=== PATIENT | female | born 1935 | race Caucasian/White ===

== ENCOUNTER 2019-05-15 05:38 | Observation (INO) | payer MEDICARE, OTHER, BC ==
[2019-05-15 06:09] LABS: ABS Lymphocytes 1.6 10^3/ul (1.0-4.8); ABS Monocytes 0.4 10^3/ul (0-0.8); ABS Neutrophils 6.2 10^3/ul (1.5-7.7); Eosinophil % 0.3 %; Hematocrit 48 % (35-47); Hemoglobin 16.6 g/dL (12.0-16.0); Lymphocyte % 19.7 %; Mean Corpuscular HGB Conc 35 g/dL (31-36); Mean Corpuscular Hemoglobin 34 pg (27-31); Mean Corpuscular Volume 97 fL (80-97); Mean Platelet Volume 6.8 fL (7.4-10.4); Nucleated Red Blood Cells % 0.1; Platelet Count 229 10^3/uL (150-450); Red Blood Count 4.95 10^6 /uL (3.70-4.87); Red Cell Distribution Width 13 % (10-15); White Blood Count 8.2 10^3/uL (3.5-10.8)
[2019-05-15 06:21] LABS: INR 0.97 (0.82-1.09)
[2019-05-15] MEDS: Meclizine TAB* 12.5 MG PO ONE ×2 (06:25→06:27)
[2019-05-15 06:28] LABS: Albumin 4.2 g/dL (3.2-5.2); Albumin/Globulin Ratio 1.6 (1-3); BUN/Creatinine Ratio 32.1 (8-20); Calcium 10.3 mg/dL (8.6-10.3); EGFR African American 78.3 (>60); EGFR Non-African American 64.8 (>60); Globulin 2.7 g/dL (2-4); Potassium 4.2 mmol/L (3.5-5.0); Total Protein 6.9 g/dL (6.4-8.9)
[2019-05-15] MEDS ORDERED: NS 0.9% 1000 ML** 1,000 ML IV ONE (06:43)
[2019-05-15 07:13] LABS: Urine Appearance Clear; Urine Bacteria Absent (Absent); Urine Bilirubin Negative (Negative); Urine Blood Negative (Negative); Urine Color Yellow; Urine Glucose Negative (Negative); Urine Ketones Trace (Negative); Urine Nitrite Negative (Negative); Urine Protein Negative (Negative); Urine Red Blood Cell 1+(3-5/hpf) (Absent); Urine Squamous Epithelial Cell Present (Absent); Urine Urobilinogen Negative (Negative); Urine White Blood Cell 2+(11-20/hpf) (Absent)
--- NOTE | 2019-05-15 08:07 | ED ---
Neurological HPI - HPI Summary HPI Summary: This patient is a 83-year-old female presenting to the ED with acute onset dizziness at 1:30 AM. She states she awoke to go to the bathroom and felt like the room was spinning. She was able to make it to the restroom without falls by holding onto the esteves and steadying herself. History of vertigo although 40 years ago and states she does not recall the feeling. She states last week on Wednesday she had to leave gnosticist service she was very nauseous, denied any vomiting or dizziness at that time. On Wednesday at the same week, she states while she was cutting up a banana she was unable to get her hand to move the way she wanted it to. She denies any weakness in the hand and was holding a knife and didnt drop the knife, however was unable to turn her hand. She states after approximately 2-3 minutes, this resolved. At that time she denied having any headache or dizziness. This morning at 1:30 she awoke with dizziness with nausea without vomiting. She was able to call the ambulance and continues to have dizziness on arrival. She has been denying any headaches. She denies any visual changes, however she was diagnosed with a degeneration causing auras and floaters. No photophobia. No dysphagia, weakness or numbness. She states these symptoms have not changed or worsened. She does endorse having physical therapy for approximately 3-4 weeks for right sided neck , shoulder and pain to the occiput area. At this time, she is denying any weakness, incoordination, neuro symptoms or confusion. Denies CP/SOB. - History of Current Complaint Chief Complaint: EDDizziness Stated Complaint: DIZZY PER EMS Time Seen by Provider: 05/15/19 05:46 Hx Obtained From: Patient Onset/Duration: Sudden Onset - 1:30am Timing: Constant Onset Severity: Severe Current Severity: Severe Pain Intensity: 0 Character: Room Spinning Aggravating: Position Change/Supine to Erect, Change in Head Position Alleviating: Rest, Lying Down, Closing Eyes Associated Signs and Symptoms: Positive: Unsteady Gait, Dizziness, Emotional Distress. Negative: Tinnitus, Visual Changes, Headache, Memory Loss, Confusion , Agitation, Weakness, Loss of Consciousness, Decreased Level of Consciousness, AMS, Impaired Speech, Numbness, Lightheadness, Chest Pain, Shortness of Breath - Allergy/Home Medications Allergies/Adverse Reactions: Allergies Allergy/AdvReac Type Severity Reaction Status Date / Time morphine Allergy Severe Anaphylatic Verified 05/15/19 05:48 Shock sulfamethoxazole Allergy Severe Nausea And Verified 05/15/19 05:48 [From Bactrim] Vomiting trimethoprim [From Bactrim] Allergy Severe Nausea And Verified 05/15/19 05:48 Vomiting codeine Allergy Intermediate Nausea Verified 05/15/19 05:48 metronidazole [From Flagyl] AdvReac See Comment Verified 05/15/19 05:48 Home Medications: Home Medications ALPRAZolam [Xanax] 0.25 mg PO SEE INSTRUCTIONS PRN 05/15/19 [History Confirmed 05/15/19] Amlodipine Besylate [Amlodipine 2.5 mg tab] 2.5 mg PO BEDTIME 05/15/19 [History Confirmed 05/15/19] Calcium Citrate/Vitamin D3 [Citracal + D3 Maximum] 1 tab PO BEDTIME 05/15/19 [ History Confirmed 05/15/19] Cholecalciferol (Vitamin D3) [Vitamin D3] 1,000 unit PO DAILY 05/15/19 [History Confirmed 05/15/19] Cyanocobalamin (Vitamin B-12) [B-12 Dots] 500 mcg PO DAILY 05/15/19 [History Confirmed 05/15/19] L.acidoph,Paracasei, B.lactis [Probiotic] 1 each PO DAILY 05/15/19 [History Confirmed 05/15/19] Loperamide CAP* [Imodium CAP*] 0.5 - 1 cap PO SEE INSTRUCTIONS PRN 05/15/19 [ History Confirmed 05/15/19] Metoprolol Tartrate TAB* [Lopressor TAB*] 25 mg PO BEDTIME 05/15/19 [History Confirmed 05/15/19] Metoprolol Tartrate TAB* [Lopressor TAB*] 50 mg PO DAILY 05/15/19 [History Confirmed 05/15/19] Multivitamin [Multiple Vitamins] 1 tab PO BEDTIME 05/15/19 [History Confirmed ] Naproxen Sodium [Aleve] 220 mg PO BID 05/15/19 [History Confirmed 05/15/19] tiZANidine TAB* [Zanaflex TAB*] 1 - 2 tab PO BID 05/15/19 [History Confirmed 11/01] traMADol TAB* [Ultram*] 25 - 50 mg PO BEDTIME 05/15/19 [History Confirmed ] PMH/Surg Hx/FS Hx/Imm Hx Previously Healthy: Yes Cardiovascular History: Reports: Hx Hypertension Musculoskeletal History: Denies: Hx Osteoporosis - Cancer History Hx Chemotherapy: No Hx Radiation Therapy: No - Immunization History Hx Pertussis Vaccination: No Immunizations Up to Date: Yes Infectious Disease History: No Infectious Disease History: Denies: Traveled Outside the [place] in Last 30 Days - Social History Occupation: Unemployed, Retired Lives: Alone Alcohol Use: None Hx Substance Use: No Substance Use Type: Reports: None Hx Tobacco Use: No Smoking Status (MU): Never Smoked Tobacco Review of Systems Negative: Fever, Chills, Fatigue, Skin Diaphoresis Negative: Palpitations, Chest Pain Negative: Shortness Of Breath, Cough Genitourinary: Negative Positive: no symptoms reported, see HPI Negative: Arthralgia, Myalgia Neurological: Other - dizziness Negative: Headache, Weakness, Paresthesia, Numbness, Syncope, Slurred Speech Psychological: Normal All Other Systems Reviewed And Are Negative: Yes Physical Exam Triage Information Reviewed: Yes Vital Signs On Initial Exam: Initial Vitals Temp Pulse Resp BP Pulse Ox 97.9 F 87 19 153/80 98 05/15/19 05:40 05/15/19 05:40 05/15/19 05:40 05/15/19 05:40 05/15/19 05:40 Vital Signs Reviewed: Yes Appearance: Positive: Well-Appearing, Well-Nourished Skin: Positive: Warm, Skin Color Reflects Adequate Perfusion Head/Face: Positive: Normal Head/Face Inspection Eyes: Positive: EOMI, SHARMIN, Conjunctiva Clear Neck: Positive: Supple, Nontender, No Lymphadenopathy Respiratory/Lung Sounds: Positive: Clear to Auscultation, Breath Sounds Present Cardiovascular: Positive: RRR, Pulses are Symmetrical in both Upper and Lower Extremities. Negative: Leg Edema Left, Leg Edema Right Musculoskeletal: Positive: Normal, Strength/ROM Intact Neurological: Positive: Sensory/Motor Intact, Alert, Oriented to Person Place, Time, CN Intact II-III, Reflexes Intact, Unable to Assess Gait, Samina-Barfield Kimble Test - difficult to perform/not accurate, Speech Normal. Negative: Receptive Aphasia, Expressive Aphasia, Disoriented, Dysphagia, Finger to Nose - negative, Dysarthric Aphasia, Pronator Drift Present Psychiatric: Positive: Normal, Affect/Mood Appropriate AVPU Assessment: Alert - Solo Coma Scale Best Eye Response: 4 - Spontaneous Best Motor Response: 6 - Obeys Commands Best Verbal Response: 5 - Oriented Coma Scale Total: 15 Diagnostics - Vital Signs Vital Signs Temp Pulse Resp BP Pulse Ox 05/15/19 06:39 75 142/96 05/15/19 06:34 24 142/96 05/15/19 06:33 79 21 147/84 97 05/15/19 06:26 75 18 162/62 98 05/15/19 06:01 79 22 99 05/15/19 05:45 81 17 157/68 99 05/15/19 05:44 81 26 99 05/15/19 05:40 97.9 F 87 19 153/80 98 - Laboratory Lab Results: Lab Results 05/15/19 05/15/19 05/15/19 Range/Units 06:01 06:01 06:01 WBC 8.2 (3.5-10.8) 10^3/uL RBC 4.95 H (3.70-4.87) 10^6 /uL Hgb 16.6 H (12.0-16.0) g/dL Hct 48 H (35-47) % MCV 97 (80-97) fL MCH 34 H (27-31) pg MCHC 35 (31-36) g/dL RDW 13 (10-15) % Plt Count 229 (150-450) 10^3/uL MPV 6.8 L (7.4-10.4) fL Neut % (Auto) 75.1 % Lymph % (Auto) 19.7 % Menard % (Auto) 4.6 % Eos % (Auto) 0.3 % Baso % (Auto) 0.3 % Absolute Neuts (auto) 6.2 (1.5-7.7) 10^3/ul Absolute Lymphs (auto) 1.6 (1.0-4.8) 10^3/ul Absolute Monos (auto) 0.4 (0-0.8) 10^3/ul Absolute Eos (auto) 0.0 (0-0.6) 10^3/ul Absolute Basos (auto) 0.0 (0-0.2) 10^3/ul Absolute Nucleated RBC 0.0 10^3/ul Nucleated RBC % 0.1 INR (Anticoag Therapy) 0.97 (0.82-1.09) Sodium 140 (135-145) mmol/L Potassium 4.2 (3.5-5.0) mmol/L Chloride 107 (101-111) mmol/L Carbon Dioxide 24 (22-32) mmol/L Anion Gap 9 (2-11) mmol/L BUN 27 H (6-24) mg/dL Creatinine 0.84 (0.51-0.95) mg/dL Est GFR ( Amer) 78.3 (>60) Est GFR (Non-Af Amer) 64.8 (>60) BUN/Creatinine Ratio 32.1 H (8-20) Glucose 119 H (70-100) mg/dL Lactic Acid (0.5-2.0) mmol/L Calcium 10.3 (8.6-10.3) mg/dL Total Bilirubin 1.00 (0.2-1.0) mg/dL AST 20 (13-39) U/L ALT 13 (7-52) U/L Alkaline Phosphatase 79 (34-104) U/L Troponin I 0.00 (<0.04) ng/mL Total Protein 6.9 (6.4-8.9) g/dL Albumin 4.2 (3.2-5.2) g/dL Globulin 2.7 (2-4) g/dL Albumin/Globulin Ratio 1.6 (1-3) Urine Color Urine Appearance Urine pH (5-9) Ur Specific [place] (1.010-1.030) Urine Protein (Negative) Urine Ketones (Negative) Urine Blood (Negative) Urine Nitrate (Negative) Urine Bilirubin (Negative) Urine Urobilinogen (Negative) Ur Leukocyte Esterase (Negative) Urine WBC (Auto) (Absent) Urine RBC (Auto) (Absent) Ur Squamous Epith Cells (Absent) Urine Bacteria (Absent) Urine Glucose (Negative) 05/15/19 05/15/19 Range/Units 06:01 06:37 WBC (3.5-10.8) 10^3/uL RBC (3.70-4.87) 10^6 /uL Hgb (12.0-16.0) g/dL Hct (35-47) % MCV (80-97) fL MCH (27-31) pg MCHC (31-36) g/dL RDW (10-15) % Plt Count (150-450) 10^3/uL MPV (7.4-10.4) fL Neut % (Auto) % Lymph % (Auto) % Menard % (Auto) % Eos % (Auto) % Baso % (Auto) % Absolute Neuts (auto) (1.5-7.7) 10^3/ul Absolute Lymphs (auto) (1.0-4.8) 10^3/ul Absolute Monos (auto) (0-0.8) 10^3/ul Absolute Eos (auto) (0-0.6) 10^3/ul Absolute Basos (auto) (0-0.2) 10^3/ul Absolute Nucleated RBC 10^3/ul Nucleated RBC % INR (Anticoag Therapy) (0.82-1.09) Sodium (135-145) mmol/L Potassium (3.5-5.0) mmol/L Chloride (101-111) mmol/L Carbon Dioxide (22-32) mmol/L Anion Gap (2-11) mmol/L BUN (6-24) mg/dL Creatinine (0.51-0.95) mg/dL Est GFR ( Amer) (>60) Est GFR (Non-Af Amer) (>60) BUN/Creatinine Ratio (8-20) Glucose (70-100) mg/dL Lactic Acid 3.0 H* (0.5-2.0) mmol/L Calcium (8.6-10.3) mg/dL Total Bilirubin (0.2-1.0) mg/dL AST (13-39) U/L ALT (7-52) U/L Alkaline Phosphatase (34-104) U/L Troponin I (<0.04) ng/mL Total Protein (6.4-8.9) g/dL Albumin (3.2-5.2) g/dL Globulin (2-4) g/dL Albumin/Globulin Ratio (1-3) Urine Color Yellow Urine Appearance Clear Urine pH 8.0 (5-9) Ur Specific [place] 1.010 (1.010-1.030) Urine Protein Negative (Negative) Urine Ketones Trace A (Negative) Urine Blood Negative (Negative) Urine Nitrate Negative (Negative) Urine Bilirubin Negative (Negative) Urine Urobilinogen Negative (Negative) Ur Leukocyte Esterase Trace A (Negative) Urine WBC (Auto) 2+(11-20/hpf) A (Absent) Urine RBC (Auto) 1+(3-5/hpf) A (Absent) Ur Squamous Epith Cells Present A (Absent) Urine Bacteria Absent (Absent) Urine Glucose Negative (Negative) Result Diagrams: 05/15/19 06:01 05/15/19 06:01 Lab Statement: Any lab studies that have been ordered have been reviewed, and results considered in the medical decision making process. NIH Scale - NIH Scale Level of Consciousness: Alert/Keenly Responsive Ask Patient the Month and His/Her Age: Both Correct Ask Pt to Open/Close Eyes and Metaphysician/Release Non-Paretic Hand: Both Correctly Best Gaze (Only Horizontal Eye Movement): Normal Visual Field Testing: No Visual Loss Facial Paresis-Pt to Smile & Close Eyes or Grimace Symmetry: Normal/Symmetrical Motor Function - Right Arm: No Drift-Holds 10 Seconds Motor Function - Left Arm: No Drift-Holds 10 Seconds Motor Function - Right Leg: No Drift-Holds 10 Seconds Motor Function - Left Leg: No Drift-Holds 10 Seconds Limb Ataxia-Must be out of Proportion to Weakness Present: Absent Sensory (Use Pinprick to Test Arms/Legs/Trunk/Face): Normal Best Language (Describe Picture, Name Items): No Aphasia Dysarthria (Read Several Words): Normal Extinction and Inattention: No Abnormality Total Score: 0 Re-Evaluation - Re-Evaluation First Eval Change: Unchanged - no change - continues to feel dizzy after meclizine given Second Eval Change: Unchanged - dizziness/no nausea, pt refusing to take valium Course/Dx - Course Course Of Treatment: On physical examination, patient appears well. Lungs CTA. RRR. No photophobia. No tinnitus or decreased hearing. No focal neck pain, however, she has been going to PT for 3 weeks for right sided neck and posterior neck pain. No pain to the abdomen. Extremities full ROM without limitations. No evidence of dysarthria. Denies double vision or blurry vision. No limb ataxia is noted. Unable to perform head thrust test d/t neck pain. [place] Hallpike Ok on R side, L side with severe dizziness and noted some nystagmus but pt closed her eyes and unable to assess accurately. Finger to nose OK. Alert and oriented x 3. NIH Stroke scale = 0. Full strength in all extremities. Unable to assess gait or dysmetria on arrival d/t dizziness. She is given Meclizine 25mg. CT brain: No acute intracranial hemorrhage. No intracranial mass. No obstructive hydrocephalus. Age-related cerebral cortical volume loss with white matter changes consistent with microvascular encephalopathy. This is moderate in severity. Labs: Consistent with some dehydration, lactic acid 3.0, BUN/creatinine ratio 32.1. H&H slightly elevated. UA: 2+ WBCs, trace leukocytes, 1+ RBCs. On re-examination, pt continues to endorses dizziness, no improvement following meclizine. Refusing to take valium as she becomes depressed.. She does have the risk factor of hypertension and atherosclerosis for acute infarct. Concerned as she has been having R sided neck pain as well as her nausea and deficit of the hand noted 3 days ago. Medications include Lopressor, amlodipine and Xanax as needed. Discussed case with Dr. Barnes, neuro, who will see pt in ED and consult. Discussed case with Dr. Mensah and will admit for further workup. She is given 1L fluids. - Differential Dx Differential Diagnoses Neuro: Positive: Benign Paroxysmal Positional Vertigo, Cerebrovascular Accident, Meniere's, Other - dehydration, vertigo, infarct, viral syndrome - Diagnoses Provider Diagnoses: Dizziness - Physician Notifications Discussed Care Of Patient With: Ksenia Barnes Time Discussed With Above Provider: 08:15 Instructed by Provider To: Admit As Inpatient Admit/Transition Orders Completed By ED Provider: No Discharge ED - Sign-Out/Discharge Documenting (check all that apply): Patient Departure Patient Received Moderate/Deep Sedation with Procedure: No - Discharge Plan Condition: Fair Disposition: ADMITTED TO [facility] Referrals: Angelika Sams MD [Primary Care Provider] - - Billing Disposition and Condition Condition: FAIR Disposition: Admitted to [facility]
[2019-05-15] MEDS ORDERED: Acetaminophen TAB* 325 MG PO PRN (08:46)
[2019-05-15] MEDS ORDERED: Ondansetron INJ* 2 MG/ML VIAL IV PRN (08:46)
[2019-05-15] MEDS ORDERED: ALPRAZolam TAB* 0.25 MG PO PRN ×2 (08:53→09:17)
[2019-05-15] MEDS ORDERED: NON FORMULARY MED* (Naproxen Sodium [Aleve] 220 MG) PO SCH (09:00)
[2019-05-15] MEDS ORDERED: Loperamide CAP* 2 MG PO SCH (09:00)
[2019-05-15] MEDS ORDERED: Lactated Ringers 1000 ML Bag* 1,000 ML IV SCH (09:00)
[2019-05-15] MEDS ORDERED: Meclizine TAB* 12.5 MG PO PRN (09:01)
[2019-05-15 10:05] LABS: C Reactive Protein 2.92 mg/L (<8.01)
[2019-05-15 10:18] LABS: HDL Cholesterol 55.7 mg/dL
[2019-05-15] MEDS: tiZANidine TAB* 2 MG PO SCH ×2 (10:36→21:11)
[2019-05-15 11:00] LABS: Erythrocyte Sed Rate 3 mm/Hr (0-29)
[2019-05-15] MEDS: Lactobacillus Acidophilus* 1 TAB PO SCH (11:08)
[2019-05-15] MEDS: Metoprolol Tartrate TAB* 50 mg PO SCH (11:08)
[2019-05-15] MEDS: Cyanocobalamin TAB* 500 MCG PO SCH (11:09)
[2019-05-15] MEDS: Enoxaparin(*) 40 MG/0.4 ML SYR SUBCUT SCH (11:09)
--- NOTE | 2019-05-15 14:05 | HP ---
CC: Dr. Angelika Sams; Dr. Bethany Mensah; Dr. Ksenia Barnes* ADMISSION HISTORY AND PHYSICAL: DATE OF ADMISSION: 05/15/19 PRIMARY CARE PROVIDER: Dr. Angelika Sams. MY ATTENDING WHILE IN THE HOSPITAL: Dr. Bethany Mensah* (dictated by HERBERT Albright). CONSULTING NEUROLOGIST: Dr. Ksenia Barnes. CHIEF COMPLAINT: Dizziness x8 hours. HISTORY OF PRESENT ILLNESS: Ms. Calzada is an 83-year-old female with past medical history significant for ulcerative colitis, status post colectomy, not on any disease modifying treatment; hypertension; and a history of polymyalgia rheumatica, who presents to the emergency department after being awoken at 1 a.m. today with severe dizziness. She states she feels like the room was spinning, she had associated nausea. She was able to walk to the bathroom and back, but felt several times that she was going to fall primarily to the left. She did not feel as if she was going to pass out. Her dizziness did get worse when standing. The patient had 1 week ago an episode of nausea and increased ostomy output, which she managed with Imodium and increasing her oral intake, which happens to her frequently. No other upper respiratory symptoms associated with this. The patient has had no blood in her ostomy. The patient has no abdominal pain. No pain with urination. The patient last Wednesday did have an episode that lasted only several seconds where she felt like her left hand was not under her control, then this resolved and has not recurred. The patient never had an episode like that before. The patient has no history of TIA or CVA. The patient had 1 episode of palpitations, which she was concerned was AFib, but this was never confirmed. The patient denies fevers, chills. The patient has nausea with dizziness, but the patient is currently not markedly dizzy except when she looks to the left. The patient in the emergency department got meclizine and fluids which helped slightly, but she still gets very symptomatic when she turns her head to the left. Due to concern for acute onset dizziness, we were asked to evaluate the patient for admission to the hospital. The patient has a history of PMR which was treated with steroids, but she never had any ocular involvement and denies jaw claudication. The patient had a stereotypical migrainous aura which lasted approximately 15 minutes last night and resolved without intervention as they normally do. The patient has never had a migraine or any sequela from this type of aura. PAST MEDICAL HISTORY: Hypertension, ulcerative colitis, osteoarthritis, history of PMR, ocular migrainous auras. PAST SURGICAL HISTORY: Bilateral hip replacements, partial thyroidectomy, colectomy with ileostomy, cataract surgery, unsuccessful left thumb tendon surgery. MEDICATIONS: 1. Metoprolol tartrate 50 mg p.o. q.a.m. 2. Metoprolol tartrate 25 mg p.o. q.p.m. 3. Amlodipine 2.5 mg p.o. daily. 4. Multivitamin. 5. Citracal D 600 mg p.o. daily. 6. Vitamin D 1000 units p.o. daily. 7. Imodium 1 mg p.o. b.i.d. 8. Xanax 0.25 mg p.r.n. daily. 9. Tramadol 25 to 50 mg p.o. nightly as needed. 10. B12 500 mcg p.o. daily. 11. Probiotic 1 tab p.o. daily. 12. Aleve 220 mg p.o. b.i.d. as needed. 13. Tizanidine 2 to 4 mg p.o. b.i.d. as needed. FAMILY HISTORY: The patient's mother of Pneumocystis jiroveci pneumonia due to chronic prednisone treatment for rheumatoid arthritis. The patient's father at 63 of heart attack. The patient has a brother who of uncontrolled bleeding on blood thinner therapy. The patient's sister is 90, is healthy except for having Alzheimer's disease. SOCIAL HISTORY: The patient never smoked, never drank, never used illicit drugs. The patient used to work as a nurse in Obstetrics and Psychiatry. The patient is and has 2 children, who will be her surrogate decision makers , their names are Hannah Osorio and Chyna Dorothy. REVIEW OF SYSTEMS: A 14-point review of systems was reviewed, was negative except as above in the HPI. PHYSICAL EXAMINATION GENERAL: The patient is an 83-year-old female who appears stated age, sitting comfortably in bed, in no acute distress. VITAL SIGNS: At the time of evaluation, temperature 97.9, pulse ox 75, respiratory rate 24, oxygen saturation 97% on room air, blood pressure 162/62. HEENT: Head: Normocephalic, atraumatic. Sclerae anicteric. No conjunctival injection. Nasal mucosa moist. Oral mucosa moist. No pharyngeal erythema, discharge, or exudate. NECK: Supple, nontender. No lymphadenopathy. No JVD. RESPIRATORY: Clear to auscultation bilaterally. No wheezes, rales, or rhonchi. Good air exchange bilaterally. CARDIAC: Regular rate and rhythm. No clicks, murmurs, gallops, or rubs. Pulses are 2+ in the dorsalis pedis, posterior tibialis, and radial areas. ABDOMEN: Soft, nontender, nondistended. Bowel sounds present, normoactive in all 4 quadrants. Ostomy is in place. No blood is noted in the ostomy bag. GENITOURINARY: No suprapubic or CVA tenderness. NEUROLOGIC: Cranial nerves II through XII intact. No focal deficits. Alert and oriented x3. Romberg negative. No drift. No nystagmus with extremes of gaze. Samina-Hallpike performed by previous provider reported to be negative. Strength 4/5 in the left upper and lower extremities distally and proximally. SKIN: Clean, dry, intact. No rash PSYCHIATRIC: Pleasant and cooperative. DIAGNOSTIC STUDIES/LAB DATA: White blood cell count 8.2, hemoglobin 16.6, platelet count 229. INR 0.97. Sodium 140, potassium 4.2, chloride 107, carbon dioxide 24, anion gap 9, BUN 27, creatinine 0.84, glucose 119, lactic acid 3.0, calcium 10.3. Bilirubin 1.0, AST 20, ALT 13, alkaline phosphatase 79. Troponin I 0.00. Protein 6.9, albumin 4.2, globulin 2.7. Urine clear, yellow, negative for protein, positive for ketones, trace leukocyte esterase, 2+ white blood cells, 1+ red blood cells, squamous epithelial cells present, negative for bacteria. 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 EKG shows normal sinus rhythm with left axis deviation, no ST segment elevation or depression. No hypertrophy. Probable left atrial enlargement. No previous study to compare. Chest x-ray read by this provider as no acute cardiopulmonary pathology. ASSESSMENT AND PLAN: Impression: The patient is an 83-year-old female with past medical history significant for ulcerative colitis, hypertension, polymyalgia rheumatica who presents to the emergency department with dizziness of acute onset at 1 a.m. today with concern for benign paroxysmal positional vertigo versus posterior cerebrovascular disease. 1. Dizziness: The patient's dizziness sounds primarily to be most consistent with benign paroxysmal positional vertigo. However, given the episode last Wednesday of left hand clumsiness, the patient's significant white matter disease, possibility of small vessel ischemia on CT as well as her age and risk factors, the patient will be evaluated for posterior circulation cerebrovascular accident. The patient will be seen in consultation by Dr. Ksenia Barnes with whom this case has been discussed. The patient will have an MRI of the head and MRA of the head and neck. The patient will have echocardiogram to look for patent foramen ovale and predisposition towards atrial fibrillation. The patient will also have inflammatory markers added on. There is a very remote possibility this could be related to vascular disease related to polymyalgia rheumatica; however, again this is very unlikely. This could also represent a possible new migrainous phenomenon given her history of auras, though again this is unlikely. The patient will have meclizine p.r.n. The patient has orthostatic hypotension and her lab work is consistent with her being dehydrated. This is not the likely cause of all the patient's symptoms, though she will be rehydrated. Her lactic acid will be trended to avoid this further complicating her clinical picture. The patient will have a hemoglobin A1c with lipid profile to risk stratify her for cerebrovascular accident. 2. Ulcerative colitis: The patient's ulcerative colitis was apparently treated with colectomy and she is not having any current symptoms of a flare and is on no disease modifying therapy. 3. Polymyalgia rheumatica: We will check inflammatory markers as above. The patient is not on any steroids for this at this time. 4. Hypertension: Continue the patient's metoprolol and amlodipine. 5. Pain: Continue the patient's tramadol, tizanidine, and naproxen. 6. DVT prophylaxis: The patient is high risk. Lovenox subcu. 7. FEN: The patient will have a regular unrestricted diet. The patient will have 1 additional liter of fluids at 100 mL an hour and her laboratory data will be checked in the morning. TIME SPENT: Approximately 60 minutes was spent on admission of this patient, 30 of which was spent [id number] with the patient obtaining history and physical and discussing treatment plan. This plan was discussed with my attending, Dr. Bethany Mensah, and she is in agreement. HERBERT ALBRIGHT [id number]/[facility] #: [id number] [place]
[2019-05-15 14:13] LABS: TSH (Thyroid Stimulating Horm) 0.45 mcIU/mL (0.34-5.60)
[2019-05-15] MEDS ORDERED: Loperamide CAP* 2 MG PO ONE (14:57)
--- NOTE | 2019-05-15 15:43 | CONS ---
NEUROLOGY CONSULTATION NOTE: DATE OF CONSULT: 05/15/19 CONSULTING PROVIDER: HERBERT Martinez REASON FOR CONSULT: Vertigo. CHIEF COMPLAINT: Vertigo. HISTORY OF PRESENT ILLNESS: Mrs. 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 The patient stated that she was in normal state of health last evening. At 1:30 a.m. today, she woke up briefly, then went back to sleep and then suddenly woke up with severe vertigo. She described the vertigo as a spinning sensation around her head. She felt the whole room was spinning. Moving to the left side exacerbated the dizziness. The spinning sensation lasted less than a minute. It was recurrent. She was able to get up and stand and go to the bathroom, but it took her significant amount of effort and time. She denied any double vision. She denied any ringing in the ears, but does have chronic hearing loss. She denied any recent upper respiratory tract infection or any nasal congestion. She was admitted for further evaluation. Since admission, the patient stated that the vertigo has improved. She has received fluids and meclizine. She now experiences vertigo transiently when looking towards the left and it can last less than 10 to 20 seconds. PAST MEDICAL HISTORY: Cataract, hypertension, chronic neck and left arm pain, dizziness, thyroid disease, left sigmoidectomy, left total hip replacement, osteoarthritis. MEDICATIONS: Home medications: 1. Tizanidine 1 to 2 tablets p.o. as needed b.i.d. 2. Naproxen 220 mg p.o. b.i.d. 3. Cyanocobalamin 500 mcg tablets. 4. Tramadol 25-50 mg p.o. at bedtime. 5. Alprazolam 0.25 mg p.o. as needed. 6. Loperamide 0.5-1 cap as needed. 7. Amlodipine 2.5 mg p.o. at bedtime. 8. Vitamin D 1000 units p.o. daily. 9. Calcium. 10. Multivitamin. 11. Metoprolol 50 mg p.o. daily. ALLERGIES: MORPHINE, SULFAMETHOXAZOLE, TRIMETHOPRIM, CODEINE, METRONIDAZOLE. FAMILY HISTORY: Her father due to coronary artery disease. He had an AR at age 53 and 63. Mother due to Pneumocystis carinii related to chronic prednisone use for rheumatoid arthritis. REVIEW OF SYSTEMS: A 14-point review of systems was obtained and otherwise negative except for what is mentioned in the HPI. PHYSICAL EXAMINATION: Vitals: Temperature of 97.6, pulse of 70, respiratory rate of 16, oxygen saturation of 95, blood pressure is 128/64. General: Well- nourished, well-developed female, in no acute distress. Head: Atraumatic, normocephalic. Eyes: Sclerae and conjunctivae are normal. Otoscopic examination shows no evidence of cerumen impaction. Tympanic membranes are white and clear. Neck is supple, but she has hypertrophy of the trapezius muscles bilaterally. There is no tenderness. Chest: Clear to auscultation bilaterally. Cardiac: Regular rate and rhythm with normal S1 and S2. Extremities: Restricted range of motion of the left arm and left leg due to rotator cuff injury on the left and left knee pain. Skin: No skin lesions or laceration. Psych: Affect is broad. Normal mood. Easy to establish rapport. Neurological Examination: Awake, alert, oriented to person, place, time and general circumstance. Language and speech including expression, repetition, and comprehension were assessed and found to be normal. Cranial Nerves: Pupils are equal round and reactive to light. Extraocular muscles are intact. No facial asymmetry. Tongue is symmetric and midline with no atrophy or fasciculation. Motor Examination: Normal tone and bulk throughout. 5/5 strength in the upper and lower extremities with limited range of motion and strength activation of the left upper and left lower extremities due to pain, mostly at the hip, knees, and the shoulders. Sensation is intact to light touch and pinprick throughout. Temperature sensation is symmetric bilaterally. Vibration is absent at the toes and the medial malleolus, but present at the knees bilaterally. Coordination: Normal finger to nose. Gait: Wide based gait, no ataxia. Samina-Halpike maneuver was positive on the left with recurrence of her symptoms as well as mild short-lasting nystagmus with the fast beating phase towards the contralateral side. LABS, IMAGING, AND DIAGNOSTIC TESTING: WBC of 8.2, hemoglobin of 16.6, hematocrit of 48, platelet count of 229. Sodium of 140, potassium of 4.2, chloride of 107, carbon dioxide of 24, BUN of 27, creatinine 0.84, lactic acid of 3 but improved to 1. LDL of 58. Urinalysis, no pyuria. CT head without contrast showed no evidence of acute intracranial abnormality. ASSESSMENT: Mrs. Syeda Calzada is an 83-year-old female with a history of degenerative disk disease of the lumbar and cervical spine who presented with a sudden onset vertigo. 1. Vertigo - based on her history and clinical examination, I suspect she has benign paroxysmal positional vertigo involving the left ear. This is supported by her transient recurrent symptoms that are lasting less than 1 minute, positionally evoked, resolved with head rest on primary gaze, and positive Cotulla- Halpike maneuver on the left. We are unable to perform the HINTS examination due to neck stiffness and rigidity related to musculoskeletal problem as well as neck stiffness. The patient may have some mild dystonia with some head tilt towards the right on examination as well. 2. Chronic neck pain radiating down the left upper extremity. This is chronic. Further evaluation for cervical spondylosis with radiculopathy will be done during this hospitalization. RECOMMENDATIONS: We ordered an MRI of the brain, MRA of the head, MRA of the neck, and MRI of the cervical spine to evaluate for any possible pontine lesion , schwannomas in the left internal auditory meatus, vertebral basilar insufficiency and to assess the degree of cervical spondylosis. I encouraged the patient to work with PT and perform the Vi maneuver to help with some of her symptoms. This may be limited due to her chronic neck pain and discomfort. I recommend outpatient vestibular rehab through Physical Therapy. Continue a lower dose of meclizine 12.5 mg as needed every 8 hours, but discontinue after 3 days. We discussed fall precautions. Continue neuro checks every 4 hours. I do not suspect that she had a stroke or a TIA, and therefore, we do not need any antiplatelet therapy. I will continue to follow. [id number]/[facility] #: [id number] [facility]
[2019-05-15] MEDS ORDERED: traMADol TAB* 50 MG PO SCH (21:00)
[2019-05-15] MEDS ORDERED: Metoprolol Tartrate TAB* 25 MG PO SCH (21:00)
[2019-05-15] MEDS ORDERED: amLODIPine TAB* 5 MG PO SCH (21:00)
[2019-05-15] MEDS ORDERED: Prenatal Vitamin TAB PO SCH (21:00)
[2019-05-15] MEDS: Loperamide CAP* 2 MG PO SCH (21:09)
[2019-05-15] MEDS: Naproxen TAB* 250 MG PO SCH (21:11)
[2019-05-16 06:06] LABS: ABS Eosinophils 0.3 10^3/ul (0-0.6); ABS Lymphocytes 2.6 10^3/ul (1.0-4.8); ABS Monocytes 0.6 10^3/ul (0-0.8); ABS Neutrophils 2.7 10^3/ul (1.5-7.7); Eosinophil % 5.1 %; Hematocrit 39 % (35-47); Hemoglobin 13.4 g/dL (12.0-16.0); Lymphocyte % 42.1 %; Mean Corpuscular HGB Conc 35 g/dL (31-36); Mean Corpuscular Hemoglobin 34 pg (27-31); Mean Corpuscular Volume 97 fL (80-97); Nucleated Red Blood Cells % 0.1; Platelet Count 181 10^3/uL (150-450); Red Blood Count 3.98 10^6 /uL (3.70-4.87); Red Cell Distribution Width 13 % (10-15); White Blood Count 6.3 10^3/uL (3.5-10.8)
[2019-05-16 06:22] LABS: BUN/Creatinine Ratio 28.9 (8-20); Calcium 8.6 mg/dL (8.6-10.3); EGFR African American 79.4 (>60); EGFR Non-African American 65.7 (>60); Magnesium 1.6 mg/dL (1.9-2.7)
[2019-05-16] MEDS: Naproxen TAB* 250 MG PO SCH (09:16)
[2019-05-16] MEDS: Cyanocobalamin TAB* 500 MCG PO SCH (09:16)
[2019-05-16] MEDS: Loperamide CAP* 2 MG PO SCH (09:16)
[2019-05-16] MEDS: tiZANidine TAB* 2 MG PO SCH (09:16)
[2019-05-16] MEDS: Enoxaparin(*) 40 MG/0.4 ML SYR SUBCUT SCH (09:16)
[2019-05-16] MEDS: Lactobacillus Acidophilus* 1 TAB PO SCH (09:16)
[2019-05-16] MEDS: Metoprolol Tartrate TAB* 50 mg PO SCH (09:16)
[2019-05-16] MEDS ORDERED: Magnesium Sulfate IV* 3 GM in NS 0.9% 100 ML* 100 ML IVPB ONE (10:00)
--- NOTE | 2019-05-16 12:01 | ECHO ---
*[facility]* [place] [address] Fax #: [phone] Transthoracic Echocardiogram Patient: Syeda Calzada : 1935 Study Date: 05/16/2019 Age: 83 Gender: F HR: 65 bpm Height: 63 in /160 cm BSA: 1.59 m^2 Weight: 125.7 lb /57.2 kg BMI: 22.3 kg/m^2 *[employer] Tender: * Sobeida Fernandez RDCS RN *Referring Physician: * Jose Luis Painter *Reading Physician: * Bentley Archer MD Indications: TIA. History: Risk factors: Hypertension. Conclusions Summary: - Left ventricle: Systolic function is normal. The estimated ejection fraction is 60-65%. Wall motion is normal; there are no regional wall motion abnormalities. - Right ventricle: Systolic function is normal. - Atrial septum: No defect or patent foramen ovale is identified by color flow Doppler. The patient refused the bubble study. - Mitral valve: There is mild regurgitation. - Aortic valve: There is mild regurgitation. - Tricuspid valve: There is trace to mild regurgitation. - Pericardium, extracardiac: There is no pericardial effusion. - Pulmonary arteries: Systolic pressure is within the normal range, estimated to be 29 mm Hg. - Study data: No prior study is available for comparison. Study data: Transthoracic echocardiogram. Procedure: Transthoracic echocardiography was performed. Image quality was fair. Complete 2D, spectral Doppler, and color flow Doppler. The patient refused the bubble study. Location: Bedside. Patient status: Inpatient. Patient room number: 445-02. No prior study is available for comparison. Rhythm: Normal sinus rhythm with PAC's. Findings Left ventricle: The cavity size is normal. Wall thickness is normal. Systolic function is normal. The estimated ejection fraction is 60-65%. Wall motion is normal; there are no regional wall motion abnormalities. Left ventricular diastolic function parameters are normal. Right ventricle: The cavity size is normal. Systolic function is normal. Left atrium: The atrium is normal in size. Right atrium: The atrium is normal in size. Atrial septum: No defect or patent foramen ovale is identified by color flow Doppler. The patient refused the bubble study. Mitral valve: The leaflets are mildly thickened. There is no evidence of stenosis. There is mild regurgitation. Aortic valve: The valve is trileaflet. The leaflets are mildly thickened. There is no evidence of stenosis. There is mild regurgitation. Tricuspid valve: The leaflets are normal thickness. There is no evidence of stenosis. There is trace to mild regurgitation. Pulmonic valve: Not well visualized. There is no evidence of stenosis. There is trace regurgitation. Aorta: Aortic root: The aortic root is not dilated. Ascending aorta: The ascending aorta is not dilated. Aortic arch: The aortic arch is not dilated. Pericardium: There is no pericardial effusion. Pulmonary arteries: Not well visualized. Systolic pressure is within the normal range, estimated to be 29 mm Hg. Systemic veins: Inferior vena cava: Not visualized. Measurements Left ventricle Value Ref Aortic valve Value Ref VIJAY, LAX 3.8 cm 3.8 - 5.2 Meche diam, ED 1.8 cm ----- ESD, LAX 2.3 cm 2.2 - 3.5 Peak v, S 1.3 m/sec ----- FS, LAX 39 % 27 - 45 VTI, S 34.2 cm ----- PW, ED 0.7 cm 0.6 - 0.9 Mean grad, S 5.0 mm Hg ----- IVS/PW, ED 1.18 Peak grad, S 7.0 mm Hg ----- E', lat meche, TDI 12.4 cm/sec >=10.0 LVOT/AV, VTI ratio 0.76 --- -- E/e', lat meche, 7 TDI Mitral valve Value Ref E', med meche, TDI 11.0 cm/sec >=7.0 Peak E 0.89 m/sec --- -- E/e', med meche, 8 Peak A 0.81 m/sec ----- TDI Decel time 246 ms ----- E', avg, TDI 11.7 cm/sec Peak grad, D 3.2 mm Hg ----- E/e', avg, TDI 8 <=14 Peak E/A ratio 1.1 --- -- LVOT Value Ref Pulmonic valve Value Ref Peak jass, S 0.99 m/sec Peak v, S 0.86 m/sec ----- VTI, S 26.0 cm Peak grad, S 3.0 mm Hg ----- Mean grad, S 3 mm Hg Tricuspid valve Value Ref Ventricular septum Value Ref TR peak v 2.3 m/sec <=2.8 IVS, ED 0.9 cm 0.6 - 0.9 Peak RV-RA grad, S 21 mm Hg ----- Max TR jass 2.3 m/sec ----- Right ventricle Value Ref VIJAY, LAX 2.8 cm Aortic root Value Ref VIJAY minor ax, A4C 2.7 cm 1.9 - 3.5 Root diam 2.5 cm <3.8 mid Pressure, S 29 mm Hg Ascending aorta Value Ref AAo AP diam, S 3.1 cm ----- Left atrium Value Ref AP dim, ES 3.70 cm 2.70 - Aortic arch Value Ref 3.80 Arch diam 2.5 cm ----- ML dim, A4C 3.4 cm SI dim, A4C 3.1 cm Decending aorta Value Ref Vol/bsa, ES, 1-p 15 ml/m^2 11 - 40 Ronak peak jass 0.86 m/sec ----- A4C Vol/bsa, ES, A/L 19 ml/m^2 16 - 34 Pulmonary artery Value Ref Pressure, S 29.0 mm Hg ----- Right atrium Value Ref ML dim, ES, A4C 3.0 cm 2.6 - 4.4 SI dim, ES, A4C (L) 3.1 cm 3.4 - 5.3 Estimated RAP 8 mm Hg Legend: (L) and (H) dorian values outside specified reference range. Prepared and electronically signed by Bentley Archer MD 05/16/2019 12:01
--- NOTE | 2019-05-16 12:20 | PN ---
Subjective Date of Service: 05/16/19 Length of Stay: 1 Days Neurology is following for symptoms of vertigo. Interval History: The symptoms of vertigo has subsided. She still has mild vertigo when turning her head towards the left, or when she quickly sits up from a seated position. She denied any headaches. She denied any focal weakness. She has been able to walk around without any discomfort. Orthostatic vitals yesterday were positive but resolved after IV fluids. She has history of intermittent palpitations in the past. She denied that now and the symptoms resolved since being placed on metoprolol. Imaging and other diagnostic studies from 05/15/2019: MRI brain without contrast: extensive white matter changes in bilateral subcortical area and the right cerebellum. These are suggestive of microvascular changes. MRA head and neck: no carotid stenosis or large vessel occlusion. MRI cervical spine without contrast: degenerative disc disease noted at multiple levels. C3-4 and C4-5 foraminal stenosis. C5-6 spondylitic ridge with mild central stenosis. TTE: EF 60-65%. The patient refused the bubble study. Review of Systems: Denied CP, SOB, or palpitations. Objective Active Medications: Acetaminophen (Tylenol Tab*) 650 mg PO Q6H PRN PRN Reason: MILD PAIN or TEMP > 100.4 Alprazolam (Xanax Tab*) 0.25 mg PO BID PRN PRN Reason: ANXIETY Amlodipine Besylate (Norvasc Tab*) 2.5 mg PO BEDTIME [facility] Last Admin: 05/15/19 21:10 Dose: 2.5 mg Cyanocobalamin (Vitamin B12 Tab*) 500 mcg PO DAILY [facility] Last Admin: 05/16/19 09:16 Dose: 500 mcg Enoxaparin Sodium (Lovenox(*)) 40 mg SUBCUT Q24H [facility] Last Admin: 05/16/19 09:16 Dose: 40 mg Lactobacillus Rhamnosus (Lactobacillus Acidophilus*) 1 tab PO DAILY [facility] Last Admin: 05/16/19 09:16 Dose: 1 tab Loperamide HCl (Imodium Cap*) 2 mg PO BID [facility] Last Admin: 05/16/19 09:16 Dose: 2 mg Meclizine HCl (Antivert Tab*) 25 mg PO Q8H PRN PRN Reason: DIZZINESS Last Admin: 05/15/19 15:08 Dose: 25 mg Metoprolol Tartrate (Lopressor Tab*) 25 mg PO BEDTIME [facility] Last Admin: 05/15/19 20:54 Dose: Not Given Metoprolol Tartrate (Lopressor Tab*) 50 mg PO DAILY [facility] Last Admin: 05/16/19 09:16 Dose: 50 mg Multivitamins ( Vitamin Tab*) 1 tab PO BEDTIME [facility] Last Admin: 05/15/19 21:09 Dose: 1 tab Naproxen (Naprosyn Tab*) 250 mg PO BID [facility] Last Admin: 05/16/19 09:16 Dose: 250 mg Ondansetron HCl (Zofran Inj*) 4 mg IV Q6H PRN PRN Reason: NAUSEA Tizanidine HCl (Zanaflex Tab*) 2 mg PO BID [facility] Last Admin: 05/16/19 09:16 Dose: 2 mg Tramadol HCl (Ultram*) 50 mg PO BEDTIME [facility] Last Admin: 05/15/19 21:11 Dose: Not Given Vital Signs 05/15/19 05/15/19 05/15/19 15:09 15:15 18:00 Temperature 98.6 F Pulse Rate 57 Respiratory 16 18 16 Rate Blood Pressure 131/56 (mmHg) O2 Sat by Pulse 97 Oximetry 05/15/19 05/16/19 05/16/19 19:35 00:40 03:41 Temperature 97.9 F 98.2 F 97.8 F Pulse Rate 60 59 70 Respiratory 17 20 20 Rate Blood Pressure 113/43 146/54 119/46 (mmHg) O2 Sat by Pulse 96 96 93 Oximetry 05/16/19 05/16/19 05/16/19 07:55 08:16 09:16 Temperature 98.0 F Pulse Rate 71 80 Respiratory 19 18 Rate Blood Pressure 121/57 142/71 (mmHg) O2 Sat by Pulse 100 Oximetry 05/16/19 11:19 Temperature Pulse Rate Respiratory 18 Rate Blood Pressure (mmHg) O2 Sat by Pulse Oximetry Intake and Output Last 24 Hours 05/14/19 05/15/19 05/16/19 05/17/19 06:59 06:59 06:59 06:59 Intake Total 2960 360 Output Total 0 Balance 2960 360 Weight 125 lb 126 lb 14.4 oz Intake: IV Fluids 2000 LR 1000 Oral 960 360 Output: Urine 0 Other: Estimated Void Medium Oxygen Devices in Use Now: None Neurology Exam: General: Well nourished, well developed, and in no acute distress HEENT: Normocephelic/atraumatic, sclera anicteric, mucous membranes moist Neck: Supple Chest: Clear to auscultation bilaterally Cardiovascular: Regular rate and rhythm without murmurs, rubs, gallops Extremities: No clubbing, cyanosis, or edema Neurological Findings: Awake, alert, and oriented to person, place, and time. Speech: fluent without dysarthria, repetition intact Cranial Nerve: PERRL, EOM intact, VFF, normal facial asymmetry. No nystagmus. Motor: 5/5 throughout except for 4/5 on the left shoulder due to pain. Sensation: intact to LT/PP bilaterally upper and lower extremities Deep Tendon Reflex: 1+ symmetric in the upper/lower extremities, Babinski - down going Finger to nose, rapid alternating movements intact without tremor, no dysdiadochokinesia Gait: intact with good arm swing and stride Result Diagrams: 05/16/19 05:49 05/16/19 05:49 Additional Lab and Data: Lab Results 05/15/19 05/15/19 05/15/19 Range/Units 06:01 06:01 06:01 WBC 8.2 (3.5-10.8) 10^3/uL RBC 4.95 H (3.70-4.87) 10^6 /uL Hgb 16.6 H (12.0-16.0) g/dL Hct 48 H (35-47) % MCV 97 (80-97) fL MCH 34 H (27-31) pg MCHC 35 (31-36) g/dL RDW 13 (10-15) % Plt Count 229 (150-450) 10^3/uL MPV 6.8 L (7.4-10.4) fL Neut % (Auto) 75.1 % Lymph % (Auto) 19.7 % [place] % (Auto) 4.6 % Eos % (Auto) 0.3 % Baso % (Auto) 0.3 % Absolute Neuts (auto) 6.2 (1.5-7.7) 10^3/ul Absolute Lymphs (auto) 1.6 (1.0-4.8) 10^3/ul Absolute Monos (auto) 0.4 (0-0.8) 10^3/ul Absolute Eos (auto) 0.0 (0-0.6) 10^3/ul Absolute Basos (auto) 0.0 (0-0.2) 10^3/ul Absolute Nucleated RBC 0.0 10^3/ul Nucleated RBC % 0.1 INR (Anticoag Therapy) 0.97 (0.82-1.09) Sodium 140 (135-145) mmol/L Potassium 4.2 (3.5-5.0) mmol/L Chloride 107 (101-111) mmol/L Carbon Dioxide 24 (22-32) mmol/L Anion Gap 9 (2-11) mmol/L BUN 27 H (6-24) mg/dL Creatinine 0.84 (0.51-0.95) mg/dL Est GFR ( Amer) 78.3 (>60) Est GFR (Non-Af Amer) 64.8 (>60) BUN/Creatinine Ratio 32.1 H (8-20) Glucose 119 H (70-100) mg/dL Lactic Acid (0.5-2.0) mmol/L Calcium 10.3 (8.6-10.3) mg/dL Total Bilirubin 1.00 (0.2-1.0) mg/dL AST 20 (13-39) U/L ALT 13 (7-52) U/L Alkaline Phosphatase 79 (34-104) U/L Troponin I 0.00 (<0.04) ng/mL Total Protein 6.9 (6.4-8.9) g/dL Albumin 4.2 (3.2-5.2) g/dL Globulin 2.7 (2-4) g/dL Albumin/Globulin Ratio 1.6 (1-3) Urine Color Urine Appearance Urine pH (5-9) Ur Specific [place] (1.010-1.030) Urine Protein (Negative) Urine Ketones (Negative) Urine Blood (Negative) Urine Nitrate (Negative) Urine Bilirubin (Negative) Urine Urobilinogen (Negative) Ur Leukocyte Esterase (Negative) Urine WBC (Auto) (Absent) Urine RBC (Auto) (Absent) Ur Squamous Epith Cells (Absent) Urine Bacteria (Absent) Urine Glucose (Negative) 05/15/19 05/15/19 Range/Units 06:01 06:37 WBC (3.5-10.8) 10^3/uL RBC (3.70-4.87) 10^6 /uL Hgb (12.0-16.0) g/dL Hct (35-47) % MCV (80-97) fL MCH (27-31) pg MCHC (31-36) g/dL RDW (10-15) % Plt Count (150-450) 10^3/uL MPV (7.4-10.4) fL Neut % (Auto) % Lymph % (Auto) % [place] % (Auto) % Eos % (Auto) % Baso % (Auto) % Absolute Neuts (auto) (1.5-7.7) 10^3/ul Absolute Lymphs (auto) (1.0-4.8) 10^3/ul Absolute Monos (auto) (0-0.8) 10^3/ul Absolute Eos (auto) (0-0.6) 10^3/ul Absolute Basos (auto) (0-0.2) 10^3/ul Absolute Nucleated RBC 10^3/ul Nucleated RBC % INR (Anticoag Therapy) (0.82-1.09) Sodium (135-145) mmol/L Potassium (3.5-5.0) mmol/L Chloride (101-111) mmol/L Carbon Dioxide (22-32) mmol/L Anion Gap (2-11) mmol/L BUN (6-24) mg/dL Creatinine (0.51-0.95) mg/dL Est GFR ( Amer) (>60) Est GFR (Non-Af Amer) (>60) BUN/Creatinine Ratio (8-20) Glucose (70-100) mg/dL Lactic Acid 3.0 H* (0.5-2.0) mmol/L Calcium (8.6-10.3) mg/dL Total Bilirubin (0.2-1.0) mg/dL AST (13-39) U/L ALT (7-52) U/L Alkaline Phosphatase (34-104) U/L Troponin I (<0.04) ng/mL Total Protein (6.4-8.9) g/dL Albumin (3.2-5.2) g/dL Globulin (2-4) g/dL Albumin/Globulin Ratio (1-3) Urine Color Yellow Urine Appearance Clear Urine pH 8.0 (5-9) Ur Specific [place] 1.010 (1.010-1.030) Urine Protein Negative (Negative) Urine Ketones Trace A (Negative) Urine Blood Negative (Negative) Urine Nitrate Negative (Negative) Urine Bilirubin Negative (Negative) Urine Urobilinogen Negative (Negative) Ur Leukocyte Esterase Trace A (Negative) Urine WBC (Auto) 2+(11-20/hpf) A (Absent) Urine RBC (Auto) 1+(3-5/hpf) A (Absent) Ur Squamous Epith Cells Present A (Absent) Urine Bacteria Absent (Absent) Urine Glucose Negative (Negative) Assessment/Plan Ms. Syeda Calzada is an 83-year-old female who presented with acute positional related vertigo. She had a positive Samina Hallpike manuever on the left. She also had positive orthostatic vitals. MRI brain showed no acute stroke but extensive white matter changes, suggestive of chronic microvascular changes. Her symptoms significantly improved today with minimal complaints of positional vertigo when looking towards the left. 1. Positional vertigo-likely left BPPV. Recommend outpatient vestibular rehabilitation if symptoms persist. 2. White matter changes on MRI- she has history of migraine headaches and hypertension. I suspect the changes to be related to microvascular disease. However, if she develops worsening vertigo, or new symptoms of ataxia, focal weakness, or paresthesia; then repeating an MRI with and without contrast to evaluate for any enhancing demyelinating lesions or tumors is recommended. 3. History of palpitation in the past- symptoms improved with metoprolol. If she develops recurrent palpitation, I encouraged her to discuss this with her PCP and consider an outpatient event monitoring to evaluate for atrial fibrillation. 4. Cervical spondylosis without myelopathy- continue PT. Encouraged her to minimize any activities that may worsen neck pain. 5. Left shoulder weakness due to rotator cuff injury - continue therapy. Follow -up with your transportation maintenance specialist. I will sign off. I will have our office contact her for a follow-up appointment.
[2019-05-16 12:52] VITALS: BP 96/45
--- NOTE | 2019-05-17 21:04 | DS ---
CC: Dr. Angelika Sams; Dr. Jocelyn Flowers* DISCHARGE SUMMARY: DATE OF ADMISSION: 05/15/19 DATE OF DISCHARGE: 05/16/19 PRIMARY CARE PROVIDER: Dr. Angelika Sams. MY ATTENDING WHILE IN THE HOSPITAL: Dr. Jocelyn Flowers* (dictated by HERBERT Albright). PRIMARY DISCHARGE DIAGNOSIS: Benign paroxysmal positional vertigo. SECONDARY DISCHARGE DIAGNOSES: 1. Hypertension. 2. Ulcerative colitis. 3. Osteoarthritis. 4. History of polymyalgia rheumatica. 5. Ocular migrainous auras. STUDIES DONE WHILE IN THE HOSPITAL: Brain CT from 05/15/19 read as no acute intracranial hemorrhage, no intracranial mass, no obstructive hydrocephalus, age - related cerebral cortical volume loss. Chest x-ray read as no acute cardiopulmonary disease. Brain MRI read as atrophy, likely chronic ischemic white matter change, no restricted diffusion is noted, no changes since prior exam. Transthoracic echocardiogram shows normal EF, no PFO, possible slight elevation of pulmonary artery systolic pressure. No other notable findings. Head and neck MRA show no stenosis or dissection. Cervical spine MRI shows C3-4 right uncovertebral joint hypertrophy. 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 C4-5 mild central canal stenosis , no definite spinal cord signal abnormalities noted. MEDICATIONS AT DISCHARGE: 1. Tizanidine 2 to 4 mg p.o. b.i.d. 2. Naproxen sodium 220 mg p.o. b.i.d. as needed. 3. Lactobacillus acidophilus 1 tab p.o. daily. 4. Cyanocobalamin 100 mcg p.o. daily. 5. Tramadol 25 to 50 mg p.o. at bedtime. 6. Alprazolam 0.25 mg p.o. as needed b.i.d. 7. Loperamide 0.5 to 1 cap p.o. b.i.d. as needed. 8. Amlodipine 2.5 mg p.o. at bedtime. 9. Vitamin D 1000 units p.o. daily. 10. Multivitamin 1 tab p.o. daily. 11. Fausto-D 1 tab p.o. at bedtime. 12. Metoprolol tartrate 25 mg p.o. daily. 13. Metoprolol tartrate 25 mg p.o. at bedtime. 14. Tylenol 650 mg p.o. q.6 hours as needed. 15. Meclizine 25 mg p.o. q.8 hours as needed. New medications at discharge: 1. Tylenol. 2. Meclizine. Medications discontinued at discharge: None. HOSPITAL COURSE: This is a brief summary of the patient's presentation. For more details, please see the history and physical from this author on 04/15/19. In brief, the patient is an 83-year-old female with past medical history significant for the above, who presented to the emergency department after feeling in her general state of health except for a small episode of right hand clumsiness 4 days from her admission that resolved within seconds, who presented to the emergency department with this fear of dizziness mainly when she looked to the left due to concern for possible recent TIA and possible posterior CVA. The patient was admitted to the hospital. The patient had the above imaging showing no CVA. The patient was seen in consultation by Dr. Ksenia Barnes of Neurology, who believe this was due to BPPV due to positive Samina- Hallpike maneuver. The patient's dizziness subsided over the course of her hospitalization and she went back to her normal state of health on 05/16/19. The patient was dehydrated on admission likely due to her ostomy. The patient was rehydrated and had no further laboratory signs of dehydration. The patient was stable and admitted for discharge to home on 05/17/19. PHYSICAL EXAM ON THE DAY OF DISCHARGE: General: The patient is an 83-year-old female who appears stated age, sitting comfortably in bed, in no acute distress. Vital Signs: Temperature 98.9, pulse rate 54, respiratory rate 20, oxygen saturation 94% on room air, blood pressure 121/57. HEENT: Head: Normocephalic, atraumatic. Sclerae anicteric. No conjunctival injection. Nasal mucosa moist. Oral mucosa moist. No pharyngeal erythema, discharge, or exudate. Neck: Supple, nontender. No lymphadenopathy. No carotid bruits auscultated. No JVD. Cardiac: Regular rate and rhythm. No clicks, murmurs, gallops, or rubs. Pulses are 2+ in the bilateral dorsalis pedis, posterior tibialis, and radial areas. Respiratory: Clear to auscultation bilaterally. No wheezes, rales, or rhonchi. Good air exchange bilaterally. Abdomen: Soft, nontender, nondistended. Bowel sounds present and normoactive in all 4 quadrants. No hepatosplenomegaly. No abdominal bruits auscultated. No hepatojugular reflux. Ostomy in place without bleeding or dark tarry material. Genitourinary: No suprapubic or CVA tenderness. Skin: Clean, dry, and intact. No rash. Neuro: Cranial nerves II through XII intact. No focal deficits. Alert and oriented x3. Normal gait. Psychiatric: Pleasant and cooperative. DISCHARGE PLAN BY PROBLEM: 1. Benign paroxysmal positional vertigo. The patient's benign paroxysmal positional vertigo has already been diminishing significantly. She is able to ambulate and turn her head to the left, which she was previously unable to do. The patient has been provided with a prescription for vestibular physical therapy if needed, though this is likely not indicated at this time. The patient also has a prescription for meclizine, which should be used as needed for persistent dizziness. The patient should follow up with her primary care provider in 1 week for general medical management and to ensure she is continuing to improve. The patient was not started on aspirin and Plavix as it was not believed to be due to transient ischemic attack. 2. History of ulcerative colitis, ostomy, dehydration. The patient should continue to use Imodium and drink plenty of fluids. The patient should have a repeat BMP with her primary care provider to assess for recurrent dehydration and her Imodium dose should be changed as above. 3. Hypertension. Continue the patient's metoprolol and amlodipine. 4. Disposition to home. 5. Condition: Stable. TIME SPENT: Approximately 65 minutes were spent on the discharge of this patient, 30 of which was spent [id number] with the patient obtaining history and physical and discussing treatment plan. HERBERT ALBRIGHT [id number]/BRYAN #: [id number] [place]
== END 2019-05-16 14:00 | disposition home or self-care (01) ==
LOC: ED 05:38 → MEDTELE 08:46
PROVIDERS: ADMIT Hospitalist; ATTEND Internal Medicine
DX: H81.10 Benign paroxysmal vertigo, unspecified ear (principal); I10 Essential (primary) hypertension; K51.90 Ulcerative colitis, unspecified, without complications; M19.90 Unspecified osteoarthritis, unspecified site; M35.3 Polymyalgia rheumatica; G43.109 Migraine with aura, not intractable, without status migrainosus; E86.0 Dehydration; G89.29 Other chronic pain; Z79.899 Other long term (current) drug therapy; M54.2 Cervicalgia; E03.9 Hypothyroidism, unspecified; Z96.642 Presence of left artificial hip joint
CPT/HCPCS: 36415; 70450; 70544; 70547; 70551; 71046; 72141; 80048; 80053; 80061; 81003; 81015; 82607; 83036; 83605; 83735; 84443; 84484; 85025; 85610; 85652; 86140; 87086; 93005; 93306; 96365; 96366; 96372; 99285; A9270-GY; G0378; J1650; J3475

== ENCOUNTER 2022-07-26 06:51 | Inpatient (IN) ==
[2022-07-26] MEDS ORDERED: Ondansetron 4 mg VIAL 2 MG/ML 2 ml VIAL IV ONE (07:52)
[2022-07-26] MEDS ORDERED: Lactated Ringers 1000 ml BAG 1,000 ML IV ONE (07:52)
[2022-07-26 07:58] LABS: Hematocrit 44 % (35-47); Hemoglobin 14.6 g/dL (12.0-16.0); Mean Corpuscular HGB Conc 34 g/dL (31-36); Mean Corpuscular Hemoglobin 33 pg (27-31); Mean Corpuscular Volume 98 fL (80-97); Mean Platelet Volume 7.1 fL (7.4-10.4); Platelet Count 190 10^3/uL (150-450); Red Blood Count 4.45 10^6 /uL (3.70-4.87); Red Cell Distribution Width 13 % (10-15); White Blood Count 6.7 10^3/uL (3.5-10.8)
[2022-07-26 08:02] LABS: ABS Monocytes 0.4 10^3/ul (0-0.8); ABS Neutrophils 5.3 10^3/ul (1.5-7.7); Eosinophil % 0.2 %; Lymphocyte % 14.8 %
[2022-07-26] MEDS: fentaNYL 100 mcg/2 ml 50 MCG/ML VIAL IV SLOW PU PRN ×3 (08:16→18:09)
[2022-07-26 08:48] LABS: Albumin 3.7 g/dL (3.2-5.2); Albumin/Globulin Ratio 1.7 (1-3); Calcium 9.6 mg/dL (8.6-10.3); Globulin 2.2 g/dL (2-4); Potassium 3.8 mmol/L (3.5-5.0); Total Bilirubin 0.8 mg/dL (0.2-1.0); Total Protein 5.9 g/dL (6.4-8.9); eGFR CKD-EPI 64.8 (>60)
[2022-07-26] MEDS ORDERED: Iohexol 350 (CONTRAST) 500 ML MDV IV ONE ×2 (08:50→19:03)
[2022-07-26 11:39] LABS: High Sensitivity Troponin 1 Hr 7 pg/mL (<15)
[2022-07-26] MEDS ORDERED: fentaNYL 100 mcg/2 ml 50 MCG/ML VIAL IV SLOW PU PRN ×2 (12:02→14:44)
[2022-07-26] MEDS: D5LR 1000 ml BAG 1,000 ML IV SCH (13:32)
[2022-07-26] MEDS ORDERED: Heparin 5000 UNITS/ML 1 mL VIAL SUBCUT SCH (14:00)
[2022-07-26 14:29] LABS: C Reactive Protein 1.6 mg/L (<8.01)
[2022-07-26] MEDS: Ondansetron 4 mg VIAL 2 MG/ML 2 ml VIAL IV PRN ×2 (14:34→21:03)
[2022-07-26 18:51] LABS: ABS Eosinophils 0.1 10^3/ul (0-0.6); ABS Lymphocytes 1.8 10^3/ul (1.0-4.8); ABS Monocytes 0.8 10^3/ul (0-0.8); ABS Neutrophils 6.3 10^3/ul (1.5-7.7); Hematocrit 42 % (35-47); Hemoglobin 14.3 g/dL (12.0-16.0); Lymphocyte % 20.1 %; Mean Corpuscular HGB Conc 34 g/dL (31-36); Mean Corpuscular Hemoglobin 33 pg (27-31); Mean Corpuscular Volume 98 fL (80-97); Nucleated Red Blood Cells % 0.1; Platelet Count 179 10^3/uL (150-450); Red Blood Count 4.31 10^6 /uL (3.70-4.87); Red Cell Distribution Width 13 % (10-15); White Blood Count 8.9 10^3/uL (3.5-10.8)
[2022-07-26 19:18] LABS: Blood Urea Nitrogen 24 mg/dL (6-24); C Reactive Protein 5.38 mg/L (<8.01); CO2 Carbon Dioxide 24 mmol/L (22-32); Calcium 9.2 mg/dL (8.6-10.3); Chloride 107 mmol/L (101-111); Glucose 100 mg/dL (70-100); Sodium 136 mmol/L (135-145); eGFR CKD-EPI 76.3 (>60)
[2022-07-26 19:22] LABS: Anion Gap 5 mmol/L (2-11)
[2022-07-26 20:18] LABS: Erythrocyte Sed Rate 5 mm/Hr (0-29)
[2022-07-27] MEDS: D5LR 1000 ml BAG 1,000 ML IV SCH ×3 (00:01→21:54)
[2022-07-27] MEDS: fentaNYL 100 mcg/2 ml 50 MCG/ML VIAL IV SLOW PU PRN ×3 (00:01→14:33)
[2022-07-27 06:19] LABS: ABS Lymphocytes 1.4 10^3/ul (1.0-4.8); ABS Monocytes 0.7 10^3/ul (0-0.8); ABS Neutrophils 5.2 10^3/ul (1.5-7.7); Eosinophil % 0.2 %; Hematocrit 40 % (35-47); Hemoglobin 13.3 g/dL (12.0-16.0); Mean Corpuscular HGB Conc 34 g/dL (31-36); Mean Corpuscular Hemoglobin 33 pg (27-31); Mean Corpuscular Volume 98 fL (80-97); Mean Platelet Volume 7.3 fL (7.4-10.4); Platelet Count 174 10^3/uL (150-450); Red Blood Count 4.06 10^6 /uL (3.70-4.87); Red Cell Distribution Width 13 % (10-15); White Blood Count 7.3 10^3/uL (3.5-10.8)
[2022-07-27 06:35] LABS: Calcium 8.7 mg/dL (8.6-10.3); Potassium 4.1 mmol/L (3.5-5.0); eGFR CKD-EPI 73.9 (>60)
[2022-07-27] MEDS: Pantoprazole VIAL 40 MG VIAL IV SCH (21:09)
[2022-07-28] MEDS: Ondansetron 4 mg VIAL 2 MG/ML 2 ml VIAL IV PRN (03:59)
[2022-07-28 06:34] LABS: ABS Eosinophils 0.2 10^3/ul (0-0.6); ABS Lymphocytes 1.6 10^3/ul (1.0-4.8); ABS Monocytes 0.8 10^3/ul (0-0.8); ABS Neutrophils 4.3 10^3/ul (1.5-7.7); Eosinophil % 2.9 %; Hematocrit 38 % (35-47); Hemoglobin 12.9 g/dL (12.0-16.0); Mean Corpuscular HGB Conc 34 g/dL (31-36); Mean Corpuscular Hemoglobin 33 pg (27-31); Mean Corpuscular Volume 97 fL (80-97); Mean Platelet Volume 6.9 fL (7.4-10.4); Platelet Count 155 10^3/uL (150-450); Red Blood Count 3.87 10^6 /uL (3.70-4.87); Red Cell Distribution Width 13 % (10-15); White Blood Count 6.8 10^3/uL (3.5-10.8)
[2022-07-28 07:14] LABS: Calcium 8.6 mg/dL (8.6-10.3); Potassium 3.8 mmol/L (3.5-5.0); eGFR CKD-EPI 75.1 (>60)
[2022-07-28] MEDS: fentaNYL 100 mcg/2 ml 50 MCG/ML VIAL IV SLOW PU PRN ×2 (07:43→19:15)
[2022-07-28] MEDS: D5LR 1000 ml BAG 1,000 ML IV SCH ×2 (08:15→21:32)
[2022-07-28] MEDS: Pantoprazole VIAL 40 MG VIAL IV SCH ×2 (08:21→21:37)
[2022-07-28 15:18] LABS: Magnesium 1.5 mg/dL (1.9-2.7); Phosphorus 2.7 mg/dL (2.5-5.0)
[2022-07-28] MEDS ORDERED: TPN 24 HR with D10W 1000 ml BAG 1,000 ML, Amino Acid Infusion 10% 850 ML, Sterile Water... IV SCH (17:00)
[2022-07-29 06:04] LABS: ABS Eosinophils 0.2 10^3/ul (0-0.6); ABS Lymphocytes 1.5 10^3/ul (1.0-4.8); ABS Monocytes 0.8 10^3/ul (0-0.8); ABS Neutrophils 3.4 10^3/ul (1.5-7.7); Eosinophil % 3.8 %; Hematocrit 37 % (35-47); Hemoglobin 12.8 g/dL (12.0-16.0); Lymphocyte % 25.3 %; Mean Corpuscular HGB Conc 34 g/dL (31-36); Mean Corpuscular Hemoglobin 33 pg (27-31); Mean Corpuscular Volume 97 fL (80-97); Platelet Count 154 10^3/uL (150-450); Red Blood Count 3.84 10^6 /uL (3.70-4.87); Red Cell Distribution Width 13 % (10-15); White Blood Count 5.9 10^3/uL (3.5-10.8)
[2022-07-29 06:47] LABS: Calcium 8.4 mg/dL (8.6-10.3); Globulin 1.7 g/dL (2-4); Magnesium 1.4 mg/dL (1.9-2.7); Phosphorus 2.9 mg/dL (2.5-5.0); Potassium 3.6 mmol/L (3.5-5.0); Total Protein 4.7 g/dL (6.4-8.9); eGFR CKD-EPI 77.5 (>60)
[2022-07-29 06:48] LABS: Albumin/Globulin Ratio 1.8 (1-3); Total Bilirubin 1.8 mg/dL (0.2-1.0)
[2022-07-29] MEDS: D5LR 1000 ml BAG 1,000 ML IV SCH (07:56)
[2022-07-29] MEDS ORDERED: Magnesium Sulfate IV 3 GM in NS 0.9% 100 ml BAG 100 ML IVPB ONE (09:00)
[2022-07-29] MEDS: Pantoprazole VIAL 40 MG VIAL IV SCH ×2 (09:21→21:18)
[2022-07-29 13:23] LABS: Urine Appearance Clear; Urine Bilirubin Negative (Negative); Urine Blood 1+ (Negative); Urine Color Yellow; Urine Glucose Negative (Negative); Urine Ketones Negative (Negative); Urine Nitrite Negative (Negative); Urine Protein Negative (Negative); Urine Specific Gravity 1.013 (1.002-1.030); Urine Urobilinogen Negative (Negative)
[2022-07-29 13:37] LABS: Urine Bacteria 1+ (Absent); Urine Red Blood Cell Trace(0-2/hpf) (Absent); Urine Squamous Epithelial Cell Present (Absent); Urine White Blood Cell 1+(6-10/hpf) (Absent)
[2022-07-29] MEDS: Ondansetron 4 mg VIAL 2 MG/ML 2 ml VIAL IV PRN ×2 (14:35→23:14)
[2022-07-29] MEDS: fentaNYL 100 mcg/2 ml 50 MCG/ML VIAL IV SLOW PU PRN ×2 (14:35→23:23)
[2022-07-29] MEDS ORDERED: fentaNYL 100 mcg/2 ml 50 MCG/ML VIAL ONE (16:13)
[2022-07-29] MEDS ORDERED: Midazolam 5 mg/5 ml VIAL 1 mg/ml 5 ml VIAL (5 mg) ONE (16:13)
[2022-07-29] MEDS: TPN 24 HR with D10W 1000 ml BAG 1,000 ML, Amino Acid Infusion 10% 850 ML, Sterile Water... IV SCH (18:24)
[2022-07-30] MEDS ORDERED: Prochlorperazine 5 mg/ml 2 ml VIAL (10 mg) IV PRN (01:58)
[2022-07-30 06:50] LABS: Albumin 3.1 g/dL (3.2-5.2); Albumin/Globulin Ratio 1.6 (1-3); Calcium 8.7 mg/dL (8.6-10.3); Globulin 1.9 g/dL (2-4); Magnesium 1.9 mg/dL (1.9-2.7); Phosphorus 3.3 mg/dL (2.5-5.0); Potassium 3.8 mmol/L (3.5-5.0); Total Bilirubin 1.3 mg/dL (0.2-1.0); eGFR CKD-EPI 76.3 (>60)
[2022-07-30] MEDS: Ondansetron 4 mg VIAL 2 MG/ML 2 ml VIAL IV PRN ×2 (08:58→21:30)
[2022-07-30] MEDS: Pantoprazole VIAL 40 MG VIAL IV SCH ×2 (08:58→21:46)
[2022-07-30] MEDS: fentaNYL 100 mcg/2 ml 50 MCG/ML VIAL IV SLOW PU PRN ×2 (09:54→21:30)
[2022-07-30] MEDS: Prochlorperazine 5 mg/ml 2 ml VIAL (10 mg) IV PRN ×3 (10:11→23:59)
[2022-07-30] MEDS: TPN 24 HR with D10W 1000 ml BAG 1,000 ML, Amino Acid Infusion 10% 850 ML, Sterile Water... IV SCH (17:06)
[2022-07-31 09:47] LABS: Albumin 3.1 g/dL (3.2-5.2); Albumin/Globulin Ratio 1.7 (1-3); Calcium 8.8 mg/dL (8.6-10.3); Globulin 1.8 g/dL (2-4); Magnesium 1.8 mg/dL (1.9-2.7); Phosphorus 3.5 mg/dL (2.5-5.0); Potassium 4.1 mmol/L (3.5-5.0); Total Bilirubin 1.1 mg/dL (0.2-1.0); Total Protein 4.9 g/dL (6.4-8.9); eGFR CKD-EPI 85.1 (>60)
[2022-07-31] MEDS ORDERED: Magnesium Sulfate IV 1GM/100ML 1 GM/100 ML BAG IV ONE (10:20)
[2022-07-31] MEDS: Pantoprazole VIAL 40 MG VIAL IV SCH ×2 (11:52→20:26)
[2022-07-31] MEDS ORDERED: Lidocaine 2% PF 5 ML VIAL ONE (13:29)
[2022-07-31] MEDS ORDERED: Propofol 10 MG/ML 20 ML BTL ONE (13:29)
[2022-07-31] MEDS ORDERED: fentaNYL 250 mcg/5 ml 50 MCG/ML 5 ml VIAL (250 MCG) ONE (13:30)
[2022-07-31] MEDS ORDERED: fentaNYL 100 mcg/2 ml 50 MCG/ML VIAL IV PRN (14:05)
[2022-07-31] MEDS ORDERED: Buffered Lidocaine 1% SYRIN 1 ml INTRADERM ONE (14:05)
[2022-07-31] MEDS ORDERED: Naloxone 0.4 mg VIAL 0.4 mg/ml 1 ml VIAL IV PRN (14:05)
[2022-07-31] MEDS ORDERED: Ondansetron 4 mg VIAL 2 MG/ML 2 ml VIAL IV PRN (14:05)
[2022-07-31] MEDS ORDERED: Metoclopramide 5 MG/ML VIAL (10 mg) IV PRN (14:05)
[2022-07-31] MEDS ORDERED: HYDROcodone/ACETAMIN 5/325 mg TAB PO PRN (14:05)
[2022-07-31] MEDS ORDERED: Rocuronium 50 mg VIAL 10 mg/ml 5 ml VIAL (50 mg) ONE (14:19)
[2022-07-31] MEDS ORDERED: ceFAZolin 2 GM PREMIX 2 GM/50 ML BAG ONE (15:00)
[2022-07-31] MEDS ORDERED: Lactated Ringers 1000 ml BAG 1,000 ML IV SCH (15:00)
[2022-07-31] MEDS ORDERED: HYDROmorphone 0.5 MG/0.5 ML SYRINGE ONE (15:55)
[2022-07-31] MEDS ORDERED: Naloxone 4 mg VIAL 0.4 MG/ML 10 ml VIAL (4 mg) ONE (16:17)
[2022-07-31] MEDS: TPN 24 HR with Dextrose 50% Water 500 ML, Amino Acid Infusion 10% 850 ML, Sterile Water... CENT\\PICC SCH (17:56)
[2022-07-31 20:31] LABS: Albumin 3.1 g/dL (3.2-5.2); Albumin/Globulin Ratio 1.8 (1-3); Calcium 8.4 mg/dL (8.6-10.3); Globulin 1.7 g/dL (2-4); Magnesium 1.8 mg/dL (1.9-2.7); Total Protein 4.8 g/dL (6.4-8.9); eGFR CKD-EPI 86.3 (>60)
[2022-08-01] MEDS ORDERED: Dextrose 50% Syringe 50 ml 25 GM/50 ML SYRINGE IV PUSH PRN (04:12)
[2022-08-01 06:46] LABS: Calcium 8.8 mg/dL (8.6-10.3); Magnesium 1.9 mg/dL (1.9-2.7); Phosphorus 3.4 mg/dL (2.5-5.0); Potassium 4.3 mmol/L (3.5-5.0); eGFR CKD-EPI 85.4 (>60)
[2022-08-01] MEDS: Pantoprazole VIAL 40 MG VIAL IV SCH ×2 (09:42→20:47)
[2022-08-01] MEDS ORDERED: Acetaminophen IV 1 GM/100ML 1,000 MG/100 ML BAG IV SCH (10:00)
[2022-08-01] MEDS: TPN 24 HR with Dextrose 50% Water 500 ML, Amino Acid Infusion 10% 850 ML, Sterile Water... CENT\\PICC SCH (17:35)
[2022-08-01] MEDS: Acetaminophen IV 1 GM/100ML 1,000 MG/100 ML BAG IV SCH (20:47)
[2022-08-02] MEDS: Acetaminophen IV 1 GM/100ML 1,000 MG/100 ML BAG IV SCH ×3 (03:53→20:20)
[2022-08-02 06:00] LABS: Calcium 8.7 mg/dL (8.6-10.3); Magnesium 1.7 mg/dL (1.9-2.7); Phosphorus 2.8 mg/dL (2.5-5.0); Potassium 4.1 mmol/L (3.5-5.0)
[2022-08-02] MEDS ORDERED: Magnesium Sulfate 2 gm BAG 2 GM/50 ML BAG IVPB ONE (08:04)
[2022-08-02] MEDS ORDERED: Loperamide LIQ 2 MG/15 ML UDC PO ONE (08:38)
[2022-08-02] MEDS: Pantoprazole VIAL 40 MG VIAL IV SCH ×2 (10:16→20:20)
[2022-08-02] MEDS: Loperamide LIQ 2 MG/15 ML UDC PO SCH (21:02)
[2022-08-03] MEDS ORDERED: Acetaminophen IV 1 GM/100ML 1,000 MG/100 ML BAG IV PRN (05:43)
[2022-08-03 05:50] LABS: Hematocrit 40 % (35-47); Hemoglobin 13.6 g/dL (12.0-16.0); Mean Corpuscular HGB Conc 34 g/dL (31-36); Mean Corpuscular Hemoglobin 33 pg (27-31); Mean Corpuscular Volume 99 fL (80-97); Mean Platelet Volume 7.6 fL (7.4-10.4); Platelet Count 191 10^3/uL (150-450); Red Blood Count 4.09 10^6 /uL (3.70-4.87); Red Cell Distribution Width 13 % (10-15); White Blood Count 7.4 10^3/uL (3.5-10.8)
[2022-08-03 06:21] LABS: Calcium 8.4 mg/dL (8.6-10.3); Magnesium 1.9 mg/dL (1.9-2.7); Potassium 3.8 mmol/L (3.5-5.0); eGFR CKD-EPI 88.1 (>60)
[2022-08-03 07:40] LABS: ABS Eosinophils 0.1 10^3/ul (0-0.6); ABS Lymphocytes 1.7 10^3/ul (1.0-4.8); ABS Monocytes 1.1 10^3/ul (0-0.8); ABS Neutrophils 4.4 10^3/ul (1.5-7.7); Lymphocyte % 23.3 %
[2022-08-03] MEDS: Loperamide LIQ 2 MG/15 ML UDC PO SCH (09:06)
[2022-08-03] MEDS: Pantoprazole VIAL 40 MG VIAL IV SCH (09:06)
[2022-08-03 11:22] VITALS: BP 149/68
== END 2022-08-03 13:05 | disposition home or self-care (01) | DRG 336 ==
LOC: ED 06:51 → EDHOLD 06:51 → SUATTDRO 12:05 → SSU 19:43 → SUATTDRO 07-27 18:51
PROVIDERS: ADMIT Internal Medicine; ATTEND Internal Medicine

== ENCOUNTER 2024-04-27 11:20 | Inpatient (IN) ==
[2024-04-27] MEDS: Ondansetron 4 mg VIAL 2 MG/ML 2 ml VIAL IV ONE ×2 (11:49→15:35)
[2024-04-27] MEDS: fentaNYL 100 mcg/2 ml 50 MCG/ML VIAL IV SLOW PU ONE ×3 (11:50→15:35)
[2024-04-27 11:52] LABS: ABS Lymphocytes 1.8 10^3/uL (1.0-4.8); ABS Monocytes 0.4 10^3/uL (0.0-0.9); ABS Neutrophils 4.2 10^3/uL (1.5-7.6); ABS Nucleated RBC 0.01 10^3/ul; Eosinophil % 0.4 %; Hematocrit 45.9 % (35-45); Hemoglobin 15.7 g/dL (11.5-14.3); Lymphocyte % 27.8 %; Mean Corpuscular Hemoglobin 33.2 pg (27-33); Mean Corpuscular Hgb Conc 34.2 g/dL (31-36); Mean Corpuscular Volume 97.1 fL (80-97); Mean Platelet Volume 7.3 fL (7.5-11.2); Nucleated Red Blood Cells % 0.1 %/100WBC (0.0-0.8); Platelet Count 204 10^3/uL (150-450); Red Blood Count 4.72 10^6/uL (3.63-4.92); Red Cell Distribution Width 12.9 % (12-17); White Blood Count 6.5 10^3/uL (3.8-11.8)
[2024-04-27 12:21] LABS: Albumin 4.1 g/dL (3.2-5.2); Albumin/Globulin Ratio 1.8 (1-3); Creatinine, Serum 0.81 mg/dL (0.51-0.95); Globulin 2.3 g/dL (2-4); Potassium 3.9 mmol/L (3.5-5.0); Total Bilirubin 1.4 mg/dL (0.2-1.0); Total Protein 6.4 g/dL (6.4-8.9); eGFR CKD-EPI 69.8 (>60)
[2024-04-27] MEDS: Iohexol 300 (CONTRAST) 10 ML SDV IV ONE (13:20)
[2024-04-27] MEDS: Acetaminophen IV 1 GM/100ML 1,000 MG/100 ML BAG IV ONE (15:35)
[2024-04-27] MEDS: Lactated Ringers 1000 ml BAG 1,000 ML IV SCH (15:53)
[2024-04-27] MEDS: diazePAM INJ CARPUJECT 5 MG/ML SYRINGE IV ONE (16:06)
[2024-04-27] MEDS: HYDROmorphone 1 MG/1 ML SYRINGE IV ONE (16:06)
[2024-04-27] MEDS: Diatrizoate Meg/Sod(CONTRAST) 30 ML ORAL.SOLN PO ONE (17:50)
[2024-04-27 21:58] LABS: Urine Appearance Clear; Urine Bilirubin Negative (Negative); Urine Blood 1+ (Negative); Urine Color Yellow; Urine Glucose Negative (Negative); Urine Ketones 1+ (Negative); Urine Nitrite Negative (Negative); Urine Protein Trace (Negative); Urine Specific Gravity >1.050 (1.002-1.030); Urine Urobilinogen Negative (Negative); Urine pH 5.5 (5.0-8.0)
[2024-04-27 22:00] LABS: Urine Bacteria Absent /HPF (Absent); Urine Red Blood Cell 1+(3-5/hpf) /HPF (0-Trace); Urine White Blood Cell Trace(0-5/hpf) /HPF (0-Trace)
[2024-04-27] MEDS: diazePAM INJ CARPUJECT 5 MG/ML SYRINGE IV SCH (23:27)
[2024-04-27] MEDS: Pantoprazole VIAL 40 MG VIAL IV SCH (23:28)
[2024-04-28] MEDS: HYDROmorphone 0.5 MG/0.5 ML SYRINGE IV SLOW PU PRN (03:27)
[2024-04-28] MEDS: Acetaminophen IV 1 GM/100ML 1,000 MG/100 ML BAG IV ONE (05:46)
[2024-04-28 06:42] LABS: Hematocrit 41.8 % (35-45); Hemoglobin 14.2 g/dL (11.5-14.3); Mean Corpuscular Hemoglobin 33.9 pg (27-33); Mean Corpuscular Volume 99.5 fL (80-97); Mean Platelet Volume 7.4 fL (7.5-11.2); Platelet Count 178 10^3/uL (150-450); Red Cell Distribution Width 12.9 % (12-17); White Blood Count 9.4 10^3/uL (3.8-11.8)
[2024-04-28 06:56] LABS: ALT 11 U/L (7-52); Albumin 3.8 g/dL (3.2-5.2); Albumin/Globulin Ratio 1.7 (1-3); Alkaline Phosphatase 70 U/L (35-149); Anion Gap 10 mmol/L (2-16); Blood Urea Nitrogen 25 mg/dL (6-24); CO2 Carbon Dioxide 26 mmol/L (22-32); Calcium 9.5 mg/dL (8.6-10.3); Chloride 107 mmol/L (101-111); Creatinine, Serum 0.71 mg/dL (0.51-0.95); Globulin 2.3 g/dL (2-4); Glucose 86 mg/dL (70-100); Sodium 143 mmol/L (135-145); Total Bilirubin 1.5 mg/dL (0.2-1.0); Total Protein 6.1 g/dL (6.4-8.9); eGFR CKD-EPI 81.7 (>60)
[2024-04-28 08:24] LABS: Magnesium 1.7 mg/dL (1.9-2.7)
[2024-04-28] MEDS: Ondansetron 4 mg VIAL 2 MG/ML 2 ml VIAL IV PRN (09:37)
[2024-04-28] MEDS: Magnesium Sulfate 2 gm BAG 2 GM/50 ML BAG IVPB ONE (09:47)
[2024-04-28] MEDS: Magnesium Sulfate IV 1GM/100ML 1 GM/100 ML BAG IV ONE (11:17)
[2024-04-28] MEDS: Lactated Ringers 1000 ml BAG 1,000 ML IV SCH (11:18)
[2024-04-28] MEDS: Prochlorperazine 5 mg/ml 2 ml VIAL (10 mg) IV PRN (12:07)
[2024-04-28] MEDS: Acetaminophen IV 1 GM/100ML 1,000 MG/100 ML BAG IV PRN (13:57)
[2024-04-28] MEDS: Carbamide Peroxide 6.5% OTIC 15 ML BTL RIGHT EAR SCH (20:21)
[2024-04-28] MEDS: Benzocaine/Menthol LOZ MT PRN (20:45)
[2024-04-29 08:03] LABS: Albumin 3.3 g/dL (3.2-5.2); Albumin/Globulin Ratio 1.7 (1-3); Calcium 8.8 mg/dL (8.6-10.3); Creatinine, Serum 0.8 mg/dL (0.51-0.95); Potassium 3.6 mmol/L (3.5-5.0); Total Bilirubin 1.5 mg/dL (0.2-1.0); Total Protein 5.3 g/dL (6.4-8.9); eGFR CKD-EPI 70.8 (>60)
[2024-04-29 09:23] LABS: ABS Lymphocytes 1.5 10^3/uL (1.0-4.8); ABS Monocytes 0.8 10^3/uL (0.0-0.9); ABS Neutrophils 5.1 10^3/uL (1.5-7.6); ABS Nucleated RBC 0.01 10^3/ul; Eosinophil % 0.4 %; Hematocrit 37.8 % (35-45); Hemoglobin 12.8 g/dL (11.5-14.3); Lymphocyte % 19.6 %; Mean Corpuscular Hemoglobin 33.2 pg (27-33); Mean Corpuscular Hgb Conc 33.9 g/dL (31-36); Mean Corpuscular Volume 97.9 fL (80-97); Mean Platelet Volume 7.9 fL (7.5-11.2); Nucleated Red Blood Cells % 0.2 %/100WBC (0.0-0.8); Platelet Count 163 10^3/uL (150-450); Red Blood Count 3.86 10^6/uL (3.63-4.92); White Blood Count 7.4 10^3/uL (3.8-11.8)
[2024-04-29 09:34] LABS: Phosphorus 3.2 mg/dL (2.5-5.0)
[2024-04-29] MEDS: KCL 20 MEQ/100 ML IVPREMIX 20 MEQ/100 ML BAG IV SCH (10:12)
[2024-04-29] MEDS ORDERED: Bupivacaine 0.25% w/EPI 10 ML SDV ONE (11:34)
[2024-04-29] MEDS ORDERED: Lidocaine 2% PF 5 ML VIAL ONE (11:36)
[2024-04-29] MEDS ORDERED: Midazolam 2 mg/2 ml VIAL 1 mg/ml 2 ml VIAL (2 mg) ONE (11:36)
[2024-04-29] MEDS ORDERED: fentaNYL 100 mcg/2 ml 50 MCG/ML VIAL ONE ×4 (11:36→17:18)
[2024-04-29] MEDS ORDERED: Propofol 10 MG/ML 20 ML BTL ONE (11:36)
[2024-04-29] MEDS ORDERED: Succinylcholine 200 mg VIAL 20 mg/ml 10 ml VIAL (200 mg) ONE (11:36)
[2024-04-29] MEDS ORDERED: Naloxone 0.4 mg VIAL 0.4 mg/ml 1 ml VIAL IV PRN (11:54)
[2024-04-29] MEDS ORDERED: HYDROmorphone 1 MG/1 ML SYRINGE IV PRN (11:54)
[2024-04-29] MEDS ORDERED: Prochlorperazine 5 mg/ml 2 ml VIAL (10 mg) IV PRN (11:54)
[2024-04-29] MEDS ORDERED: ceFAZolin 2 GM PREMIX 2 GM/50 ML BAG ONE (12:39)
[2024-04-29] MEDS ORDERED: Rocuronium 50 mg VIAL 10 mg/ml 5 ml VIAL (50 mg) ONE (12:55)
[2024-04-29] MEDS ORDERED: Metoprolol Tartrate 5 mg VIAL 5 ml VIAL (1 mg/ml) ONE (13:29)
[2024-04-29] MEDS ORDERED: hydrALAZINE 20 mg/ml 1 ML Vial IV ONE (13:44)
[2024-04-29] MEDS ORDERED: Dexamethasone IV 4 MG/ML VIAL 1 ml VIAL ONE (14:39)
[2024-04-29] MEDS ORDERED: Ondansetron 4 mg VIAL 2 MG/ML 2 ml VIAL ONE (14:53)
[2024-04-29] MEDS ORDERED: HYDROmorphone 1 MG/1 ML SYRINGE IV SLOW PU PRN (17:04)
[2024-04-29] MEDS ORDERED: Acetaminophen IV 1 GM/100ML 1,000 MG/100 ML BAG IV ONE (17:11)
[2024-04-29] MEDS: Acetaminophen IV 1 GM/100ML 1,000 MG/100 ML BAG IV ONE (17:15)
[2024-04-29] MEDS: fentaNYL 100 mcg/2 ml 50 MCG/ML VIAL IV PRN (17:26)
[2024-04-29] MEDS ORDERED: Potassium Chloride IV 20 MEQ in Lactated Ringers 1000 ml BAG 1,000 ML IVPB SCH (19:00)
[2024-04-29] MEDS: Potassium Chloride IV 20 MEQ in Lactated Ringers 1000 ml BAG 1,000 ML IVPB SCH (19:24)
[2024-04-29] MEDS: Lactated Ringers 1000 ml BAG 1,000 ML IV SCH (19:30)
[2024-04-29] MEDS: ceFAZolin VIAL 2 GM in NS 0.9% 100 ml BAG 100 ML IVPB ONE (19:31)
[2024-04-29] MEDS: HYDROmorphone 1 MG/1 ML SYRINGE IV SLOW PU PRN (20:20)
[2024-04-29] MEDS: Metoprolol Tartrate 5 mg VIAL 5 ml VIAL (1 mg/ml) IV SCH (20:20)
[2024-04-29 22:17] LABS: Hematocrit 41.3 % (35-45); Hemoglobin 14.4 g/dL (11.5-14.3)
[2024-04-30] MEDS: Acetaminophen IV 1 GM/100ML 1,000 MG/100 ML BAG IV PRN (01:04)
[2024-04-30 06:17] LABS: ABS Lymphocytes 0.6 10^3/uL (1.0-4.8); ABS Monocytes 0.7 10^3/uL (0.0-0.9); ABS Nucleated RBC 0.01 10^3/ul; Hematocrit 39.7 % (35-45); Hemoglobin 13.5 g/dL (11.5-14.3); Lymphocyte % 5.8 %; Mean Corpuscular Hemoglobin 33.3 pg (27-33); Mean Platelet Volume 7.3 fL (7.5-11.2); Nucleated Red Blood Cells % 0.1 %/100WBC (0.0-0.8); Platelet Count 138 10^3/uL (150-450); Red Blood Count 4.05 10^6/uL (3.63-4.92); White Blood Count 10.3 10^3/uL (3.8-11.8)
[2024-04-30] MEDS: Potassium Chloride IV 20 MEQ in Lactated Ringers 1000 ml BAG 1,000 ML IVPB SCH (06:28)
[2024-04-30 07:01] LABS: Albumin 2.9 g/dL (3.2-5.2); Albumin/Globulin Ratio 1.6 (1-3); Calcium 8.4 mg/dL (8.6-10.3); Creatinine, Serum 0.77 mg/dL (0.51-0.95); Globulin 1.8 g/dL (2-4); Magnesium 1.7 mg/dL (1.9-2.7); Phosphorus 3.4 mg/dL (2.5-5.0); Potassium 4.5 mmol/L (3.5-5.0); Total Bilirubin 1.4 mg/dL (0.2-1.0); Total Protein 4.7 g/dL (6.4-8.9); eGFR CKD-EPI 74.1 (>60)
[2024-04-30] MEDS: Magnesium Sulfate 2 gm BAG 2 GM/50 ML BAG IVPB ONE (08:31)
[2024-04-30] MEDS: HYDROmorphone 0.5 MG/0.5 ML SYRINGE IV SLOW PU PRN (20:24)
[2024-05-01 06:05] LABS: ABS Lymphocytes 0.9 10^3/uL (1.0-4.8); ABS Monocytes 1.2 10^3/uL (0.0-0.9); ABS Neutrophils 9.1 10^3/uL (1.5-7.6); Hematocrit 36.3 % (35-45); Hemoglobin 12.5 g/dL (11.5-14.3); Mean Corpuscular Hgb Conc 34.4 g/dL (31-36); Platelet Count 129 10^3/uL (150-450); Red Blood Count 3.67 10^6/uL (3.63-4.92); Red Cell Distribution Width 13.3 % (12-17); White Blood Count 11.2 10^3/uL (3.8-11.8)
[2024-05-01 06:21] LABS: Calcium 8.9 mg/dL (8.6-10.3); Creatinine, Serum 0.71 mg/dL (0.51-0.95); Magnesium 2.3 mg/dL (1.9-2.7); Phosphorus 2.7 mg/dL (2.5-5.0); Potassium 5.2 mmol/L (3.5-5.0); eGFR CKD-EPI 81.7 (>60)
[2024-05-01] MEDS: NS 0.9% 1000 ml BAG 1,000 ML IV SCH (11:07)
[2024-05-01] MEDS ORDERED: Enoxaparin 40 MG/0.4 ML SYR SUBCUT SCH (12:00)
[2024-05-01] MEDS: Enoxaparin 40 MG/0.4 ML SYR SUBCUT SCH (14:48)
[2024-05-01 16:29] LABS: Creatinine, Serum 0.66 mg/dL (0.51-0.95); Potassium 4.8 mmol/L (3.5-5.0); eGFR CKD-EPI 84.3 (>60)
[2024-05-02 06:12] LABS: Hematocrit 36.4 % (35-45); Hemoglobin 11.7 g/dL (11.5-14.3); Red Blood Count 3.51 10^6/uL (3.63-4.92); White Blood Count 7.6 10^3/uL (3.8-11.8)
[2024-05-02 06:13] LABS: Mean Corpuscular Hemoglobin 33.4 pg (27-33); Mean Corpuscular Hgb Conc 32.1 g/dL (31-36); Mean Corpuscular Volume 103.8 fL (80-97); Mean Platelet Volume 7.8 fL (7.5-11.2); Platelet Count 124 10^3/uL (150-450); Red Cell Distribution Width 14.2 % (12-17)
[2024-05-02 06:26] LABS: Calcium 8.5 mg/dL (8.6-10.3); Creatinine, Serum 0.67 mg/dL (0.51-0.95); Potassium 4.6 mmol/L (3.5-5.0)
[2024-05-02] MEDS ORDERED: HYDROmorphone 0.5 MG/0.5 ML SYRINGE IV SLOW PU PRN (08:18)
[2024-05-02] MEDS: HYDROcodone/ACETAMIN 5/325 mg TAB PO PRN (08:46)
[2024-05-02] MEDS: diazePAM INJ CARPUJECT 5 MG/ML SYRINGE IV PRN (13:44)
[2024-05-03 07:12] LABS: Hematocrit 35.8 % (35-45); Hemoglobin 12.3 g/dL (11.5-14.3); Mean Corpuscular Hemoglobin 34.1 pg (27-33); Mean Corpuscular Hgb Conc 34.3 g/dL (31-36); Mean Corpuscular Volume 99.7 fL (80-97); Mean Platelet Volume 7.6 fL (7.5-11.2); Platelet Count 163 10^3/uL (150-450); Red Blood Count 3.59 10^6/uL (3.63-4.92); Red Cell Distribution Width 13.1 % (12-17); White Blood Count 6.9 10^3/uL (3.8-11.8)
[2024-05-03 07:45] LABS: Calcium 8.1 mg/dL (8.6-10.3); Creatinine, Serum 0.65 mg/dL (0.51-0.95); Magnesium 1.7 mg/dL (1.9-2.7); Potassium 4.1 mmol/L (3.5-5.0); eGFR CKD-EPI 84.6 (>60)
[2024-05-03] MEDS: Magnesium Sulfate 2 gm BAG 2 GM/50 ML BAG IVPB ONE (12:28)
[2024-05-03] MEDS: Magnesium Sulfate IV 1GM/100ML 1 GM/100 ML BAG IV ONE (13:35)
[2024-05-03 20:43] LABS: Urine Appearance Clear; Urine Bilirubin Negative (Negative); Urine Blood 1+ (Negative); Urine Color Yellow; Urine Glucose Negative (Negative); Urine Ketones Trace (Negative); Urine Nitrite Negative (Negative); Urine Protein Trace (Negative); Urine Specific Gravity 1.027 (1.002-1.030); Urine Urobilinogen Negative (Negative); Urine pH 5.5 (5.0-8.0)
[2024-05-03 20:48] LABS: Urine Amorphous Crystals Present /HPF (Absent); Urine Bacteria 1+ /HPF (Absent); Urine Red Blood Cell 2+(6-10/hpf) /HPF (0-Trace); Urine Squamous Epithelial Cell Present /HPF (Absent); Urine White Blood Cell Trace(0-5/hpf) /HPF (0-Trace)
[2024-05-04 08:09] LABS: Hematocrit 35.5 % (35-45); Hemoglobin 12.1 g/dL (11.5-14.3); Mean Corpuscular Hemoglobin 33.9 pg (27-33); Mean Corpuscular Hgb Conc 34.2 g/dL (31-36); Mean Corpuscular Volume 99.2 fL (80-97); Mean Platelet Volume 7.2 fL (7.5-11.2); Platelet Count 172 10^3/uL (150-450); Red Blood Count 3.58 10^6/uL (3.63-4.92); White Blood Count 6.4 10^3/uL (3.8-11.8)
[2024-05-04 08:17] LABS: Calcium 7.5 mg/dL (8.6-10.3); Creatinine, Serum 0.57 mg/dL (0.51-0.95); Potassium 3.9 mmol/L (3.5-5.0); eGFR CKD-EPI 87.4 (>60)
[2024-05-05 07:24] LABS: Albumin 2.6 g/dL (3.2-5.2); Albumin/Globulin Ratio 1.2 (1-3); Calcium 7.8 mg/dL (8.6-10.3); Creatinine, Serum 0.59 mg/dL (0.51-0.95); Globulin 2.1 g/dL (2-4); Magnesium 1.7 mg/dL (1.9-2.7); Potassium 3.6 mmol/L (3.5-5.0); Total Bilirubin 0.9 mg/dL (0.2-1.0); Total Protein 4.7 g/dL (6.4-8.9); eGFR CKD-EPI 86.6 (>60)
[2024-05-05] MEDS: Magnesium Sulfate 2 gm BAG 2 GM/50 ML BAG IVPB ONE (10:56)
[2024-05-05] MEDS: Magnesium Sulfate IV 1GM/100ML 1 GM/100 ML BAG IV ONE (12:22)
[2024-05-05] MEDS: Amoxicillin/Clavul 875/125 TAB (Augmentin 875 tab) PO SCH (20:46)
[2024-05-06] MEDS: Amoxicillin/Clavul ORALSYR 80 MG/ML (400 MG/5 ML) PO SCH (09:45)
[2024-05-07 05:56] LABS: Hematocrit 36.8 % (35-45); Hemoglobin 12.4 g/dL (11.5-14.3); Mean Corpuscular Hemoglobin 33.2 pg (27-33); Mean Corpuscular Hgb Conc 33.8 g/dL (31-36); Mean Corpuscular Volume 98.4 fL (80-97); Mean Platelet Volume 6.5 fL (7.5-11.2); Platelet Count 255 10^3/uL (150-450); Red Blood Count 3.74 10^6/uL (3.63-4.92); Red Cell Distribution Width 13.2 % (12-17); White Blood Count 9.1 10^3/uL (3.8-11.8)
[2024-05-07 06:26] LABS: Calcium 7.8 mg/dL (8.6-10.3); Creatinine, Serum 0.5 mg/dL (0.51-0.95); Magnesium 1.6 mg/dL (1.9-2.7); Potassium 3.3 mmol/L (3.5-5.0); eGFR CKD-EPI 90.2 (>60)
[2024-05-07] MEDS: KCL 20 MEQ/100 ML IVPREMIX 20 MEQ/100 ML BAG IV SCH (09:11)
[2024-05-07] MEDS: Magnesium Sulf 4 GM/100 ML IV 4,000 MG/100 ML BAG IVPB ONE (11:03)
[2024-05-07] MEDS: Potassium Chlor 20 meq TAB.ER PO ONE (14:31)
[2024-05-08 07:01] LABS: Creatinine, Serum 0.49 mg/dL (0.51-0.95); Magnesium 2.2 mg/dL (1.9-2.7); Phosphorus 2.9 mg/dL (2.5-5.0); Potassium 3.9 mmol/L (3.5-5.0); eGFR CKD-EPI 90.6 (>60)
[2024-05-09] MEDS: HYDROcodone/ACETAMIN 5/325 mg TAB PO PRN (09:24)
[2024-05-10 08:46] LABS: Rapid COVID-19 Molecular Undetected (Undetected)
[2024-05-10 09:58] VITALS: BP 148/72
== END 2024-05-10 11:00 | DRG 330 ==
LOC: ED 11:20 → EDHOLD 11:20 → MED 16:40 → SSU 16:59 → SUATTDRO 04-28 10:10 → SSU 04-29 18:38
PROVIDERS: ADMIT Internal Medicine; ATTEND Internal Medicine